=== PATIENT | male | born 1955 | race Caucasian/White ===

== ENCOUNTER 2016-11-20 17:11 | Emergency (ER) | payer OTHER ==
[~2016-11-20] VITALS: Ht 175.3 cm; Wt 108.9 kg
[~2016-11-20 17:11] MED LIST: ASPIRIN 81MG TA81 MG PO; CIPRO 500MG TA500 MG PO; FLAGYL500 M1 PO; FLOMAX 0.4MG C0.4 MG PO; NORCO 325 MG-51 TAB PO; OMEPRAZOLE20 MG PO; OMEPRAZOLE40 MG PO; VERAPAMIL HCL40 MG PO; ZOFRAN 8MG TABLE8 MG PO; ZOFRAN ODT4 MG PO
--- NOTE | 2016-11-20 18:09 | Urgent Treatment Center Report ---
History of Present Issue Date/Time Seen by Provider 11/20/16 5239 Visit Reason Pt arrived:Walked Presenting Problem:PT C/O MIGRAINE PEREZ SINCE LAST NIGHT. PT ADVISES THAT HIS HR GOT UP LAST NIGHT AND THAT IS WHEN THE MIGRAINE BEGAN. PT STATES THAT HE HAS A PACEMAKER THAT SHOCKS HIS HEART BACK INTO RHYTHM WHEN IT GETS TOO FAST. PT ADVISES THAT IT SHOCKED HIM ON HIS WAY HOME FROM WORK THIS MORNING AND THE MIGRAINE WAS WORSE. HE DID VOMIT THIS MORNING AND FELT IF HE WAS GOING TO PASS OUT. PT DENIES ANY OTHER SYMPTOMS THAN THE MIGRAINE AT THIS TIME Location if Accident: Onset of symptoms date/time:/ or onset unknown for:MEDICAL HX UNKNOWN Have you (or family members/close friends) recently traveled outside the [place]? N If Yes, where/when: Have you had exposure to infectious disease within the past month? TB? Other? Specify: Patient state that he has a pacemaker states that yesterday he began to have a migraine after his heart rate went up States that his pacemaker fired this morning and it made him vomit and ever since his head has been hurting worse. States that he gets these headaches sometimes and when he vomits it makes it worse. Denies any chest pain or palpatations at this time. States that he just has the migraine and that may have made his heartrate increase to start with ALLERGIES Coded Allergies: No Known Allergies (07/25/16) Home Medications Active Scripts Omeprazole (Omeprazole 40MG) 40 MG PO DAILY 14 Days Prov: 07/25/16 Ondansetron Hcl (Zofran 8MG Tab) 8 MG PO Q6HP PRN nausea 5 Days Prov: 07/25/16 Reported Medications ASPIRIN (Aspirin) 81 MG PO DAILY Omeprazole (Omeprazole 20MG) 20 MG PO DAILY #30 History Medical History General CAD? No Angina: Yes MA: No Hypertension? Yes Hyperlipidemia? Yes CHF? No DVT? No PE? No COPD? No Asthma? No Anemia? No GERD? Yes Gastric ulcers? Yes GI Bleed? No Hernia? Yes Thyroid Problems? No Hypothyroidism? No CVA? No Seizures? No Diabetes? No Renal Insuffiency? No UTI? No Stones? Yes BPH? No GB Disease: No Nephritic Syndrome? No Asplenia? No Hepatitis? No Sickle Cell Disease? No Arthritis? Yes Migraines? Yes Cataracts? No Glaucoma? No MRSA? No HIV? No TB? No Anxiety? Yes Depression? Yes Cancer? Yes Site: SKIN More? No Immunization HX DT/Tetanus 1-4 Years Ago Surgical Hx Previous Surgery?Y PACEMAKER FINGER UMBILICAL HERNIA Social History Smoking Hx Smoker: Never Smoker Tobacco: No Alcohol Alcohol: No Review of Systems All Other Systems Reviewed and Negative Psychiatric/Neurological headache Comment Patient states that he has migraines at times and this migraine has caused him to have some nausea and vomiting Physical Exam Vital Signs Vital Signs Date Time Temp Pulse Resp B/P Pulse O2 O2 Flow FiO2 Ox Delivery Rate 11/21 1815 16 11/20 1724 98.0 69 18 140/78 96 General Appearance Patient appears ill, sitting in exam chair Respiratory Status Yes: trachea midline, chest symmetrical, non tender chest. No: respiratory distress. 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 States that he was suppose to work tonight but still having headache and feeling nausous Medical Decision Making LABS/Meds/Orders Pt receiving controlled substance in ED? No Results/Orders Current Medication Orders Sig/Winnie Start time Last Medication Dose Route Stop Time Status Admin Promethazine HCl 1 JAMES ONCE ONE 11/20 1845 DC PO 11/20 1846 Ketorolac 60 MG ONCE ONE 11/20 1815 CAN Tromethamine IM 11/20 1816 Ketorolac 0 .STK-MED ONE 11/20 1805 DC Tromethamine .ROUTE Ketorolac 60 MG ONCE ONE 11/20 1800 DC 11/20 Tromethamine IM 11/20 1801 1816 Progress [facility] Progress Notes 1 Date 11/20/16 Time 1837 Comment Patient was given Tordol for pain. Advised patient that he needed to go to ER due to pacemaker firing and paitnet refused. States that he just wanted to be seen for the migraine and then go home. 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 Patient given take home phenergan and informed to take it as soon as he arrives home Departure Departure Time of Disposition 184 Disposition DC Home or Self Care(routine) Clinical Impression Primary Impression: Migraine Qualifiers: Migraine type: unspecified Status migrainosus presence: without status migrainosus Intractability: intractable Qualified Code: G43.919 - Migraine, unspecified, intractable, without status migrainosus Condition STABLE Referrals FAHAD CHAUDHARY APRN (Family) Patient Instructions DI for Migraine, Migraine -- Adult Additional Instructions Follow up with family doctor tomorrow and inform of pacemaker firign Follow up with Beamer Operator Take over the counter Motrin or Tylenol as needed for pain Return if needed Take Phenergan every 8 hours as directed Discharge Counseling Counseled pt/family regarding diagnosis at 1854
--- NOTE | 2016-11-20 18:09 | Urgent Treatment Center Report ---
History of Present Issue Date/Time Seen by Provider 11/20/16 9657 Visit Reason Pt arrived:Walked Presenting Problem:PT C/O MIGRAINE PEREZ SINCE LAST NIGHT. PT ADVISES THAT HIS HR GOT UP LAST NIGHT AND THAT IS WHEN THE MIGRAINE BEGAN. PT STATES THAT HE HAS A PACEMAKER THAT SHOCKS HIS HEART BACK INTO RHYTHM WHEN IT GETS TOO FAST. PT ADVISES THAT IT SHOCKED HIM ON HIS WAY HOME FROM WORK THIS MORNING AND THE MIGRAINE WAS WORSE. HE DID VOMIT THIS MORNING AND FELT IF HE WAS GOING TO PASS OUT. PT DENIES ANY OTHER SYMPTOMS THAN THE MIGRAINE AT THIS TIME Location if Accident: Onset of symptoms date/time:/ or onset unknown for:MEDICAL HX UNKNOWN Have you (or family members/close friends) recently traveled outside the [place]? N If Yes, where/when: Have you had exposure to infectious disease within the past month? TB? Other? Specify: Patient state that he has a pacemaker states that yesterday he began to have a migraine after his heart rate went up States that his pacemaker fired this morning and it made him vomit and ever since his head has been hurting worse. States that he gets these headaches sometimes and when he vomits it makes it worse. Denies any chest pain or palpatations at this time. States that he just has the migraine and that may have made his heartrate increase to start with ALLERGIES Coded Allergies: No Known Allergies (07/25/16) Home Medications Active Scripts Omeprazole (Omeprazole 40MG) 40 MG PO DAILY 14 Days Prov: 07/25/16 Ondansetron Hcl (Zofran 8MG Tab) 8 MG PO Q6HP PRN nausea 5 Days Prov: 07/25/16 Reported Medications ASPIRIN (Aspirin) 81 MG PO DAILY Omeprazole (Omeprazole 20MG) 20 MG PO DAILY #30 History Medical History General CAD? No Angina: Yes KS: No Hypertension? Yes Hyperlipidemia? Yes CHF? No DVT? No PE? No COPD? No Asthma? No Anemia? No GERD? Yes Gastric ulcers? Yes GI Bleed? No Hernia? Yes Thyroid Problems? No Hypothyroidism? No CVA? No Seizures? No Diabetes? No Renal Insuffiency? No UTI? No Stones? Yes BPH? No GB Disease: No Nephritic Syndrome? No Asplenia? No Hepatitis? No Sickle Cell Disease? No Arthritis? Yes Migraines? Yes Cataracts? No Glaucoma? No MRSA? No HIV? No TB? No Anxiety? Yes Depression? Yes Cancer? Yes Site: SKIN More? No Immunization HX DT/Tetanus 1-4 Years Ago Surgical Hx Previous Surgery?Y PACEMAKER FINGER UMBILICAL HERNIA Social History Smoking Hx Smoker: Never Smoker Tobacco: No Alcohol Alcohol: No Review of Systems All Other Systems Reviewed and Negative Psychiatric/Neurological headache Comment Patient states that he has migraines at times and this migraine has caused him to have some nausea and vomiting Physical Exam Vital Signs Vital Signs Date Time Temp Pulse Resp B/P Pulse O2 O2 Flow FiO2 Ox Delivery Rate 11/21 1815 16 11/20 1724 98.0 69 18 140/78 96 General Appearance Patient appears ill, sitting in exam chair Respiratory Status Yes: trachea midline, chest symmetrical, non tender chest. No: respiratory distress. 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 States that he was suppose to work tonight but still having headache and feeling nausous Medical Decision Making LABS/Meds/Orders Pt receiving controlled substance in ED? No Results/Orders Current Medication Orders Sig/Winnie Start time Last Medication Dose Route Stop Time Status Admin Promethazine HCl 1 JAMES ONCE ONE 11/20 1845 DC PO 11/20 1846 Ketorolac 60 MG ONCE ONE 11/20 1815 CAN Tromethamine IM 11/20 1816 Ketorolac 0 .STK-MED ONE 11/20 1805 DC Tromethamine .ROUTE Ketorolac 60 MG ONCE ONE 11/20 1800 DC 11/20 Tromethamine IM 11/20 1801 1816 Progress [facility] Progress Notes 1 Date 11/20/16 Time 1837 Comment Patient was given Tordol for pain. Advised patient that he needed to go to ER due to pacemaker firing and paitnet refused. States that he just wanted to be seen for the migraine and then go home. 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 Patient given take home phenergan and informed to take it as soon as he arrives home Departure Departure Time of Disposition 184 Disposition DC Home or Self Care(routine) Clinical Impression Primary Impression: Migraine Qualifiers: Migraine type: unspecified Status migrainosus presence: without status migrainosus Intractability: intractable Qualified Code: G43.919 - Migraine, unspecified, intractable, without status migrainosus Condition STABLE Referrals FAHAD CHAUDHARY APRN (Family) Patient Instructions DI for Migraine, Migraine -- Adult Additional Instructions Follow up with family doctor tomorrow and inform of pacemaker firign Follow up with Demurrage Agent Take over the counter Motrin or Tylenol as needed for pain Return if needed Take Phenergan every 8 hours as directed Discharge Counseling Counseled pt/family regarding diagnosis at 1859
--- OUTSIDE RECORDS SUMMARY | 2016-11-20 18:27 | External Medical Summary Rpt ---
Author Author , Organization [employer] Address Unknown Phone Unavailable Purpose Continuity of Care Document - through 2016
--- OUTSIDE RECORDS SUMMARY | 2016-11-20 18:27 | External Medical Summary Rpt ---
Demographics Preferred Language Macedonian Marital Status Unknown Gnosticist Affiliation Unknown Race Unknown Ethnic Group Unknown Author Author , Organization [employer] Address Unknown Phone Unavailable Purpose Continuity of Care Document - through 2016 Immunization No patient found.
--- OUTSIDE RECORDS SUMMARY | 2016-11-20 18:27 | External Medical Summary Rpt ---
Author Author SHARON Rousseau, SHARON [employer] Organization [employer] Address Unknown Phone Unavailable
--- OUTSIDE RECORDS SUMMARY | 2016-11-20 18:27 | External Medical Summary Rpt ---
Author Author [employer] Organization [employer] Address Unknown Phone Unavailable Purpose Continuity of Care Document - through 2016
--- OUTSIDE RECORDS SUMMARY | 2016-11-20 18:27 | External Medical Summary Rpt ---
Demographics Preferred Language Kazakh Marital Status Unknown Anglican Affiliation Unknown Race Unknown Ethnic Group Unknown Author Author , Organization [employer] Address Unknown Phone Unavailable Purpose Continuity of Care Document - through 2016 Immunization No patient found.
--- OUTSIDE RECORDS SUMMARY | 2016-11-20 18:27 | External Medical Summary Rpt ---
Demographics Preferred Language Lao Marital Status Unknown Baptist Affiliation Unknown Race Unknown Ethnic Group Unknown Author Author , Organization [employer] Address Unknown Phone Unavailable Purpose Continuity of Care Document - through 2016 Immunization No patient found.
--- OUTSIDE RECORDS SUMMARY | 2016-11-20 18:27 | External Medical Summary Rpt ---
Demographics Preferred Language Belarusian Marital Status Unknown Cheondoism Affiliation Unknown Race Unknown Ethnic Group Unknown Author Author , Organization [employer] Address Unknown Phone Unavailable Purpose Continuity of Care Document - through 2016 Immunization No patient found.
[2016-11-20 18:59] VITALS: BP 140/78
== END 2016-11-20 19:01 | disposition home or self-care (01) ==
LOC: UTC 17:11
DX: G43.919 Migraine, unspecified, intractable, without status migrainosus (principal); I10 Essential (primary) hypertension; F41.8 Other specified anxiety disorders

== ENCOUNTER 2017-05-05 10:10 | Emergency (ER) | payer OTHER ==
[~2017-05-05] VITALS: Ht 175.3 cm; Wt 108.9 kg
--- OUTSIDE RECORDS SUMMARY | 2017-05-05 10:16 | External Medical Summary Rpt | CCD ---
Author Author SHARON Address Unknown Phone [email or web address] Purpose Continuity of Care Document - through 2016
--- OUTSIDE RECORDS SUMMARY | 2017-05-05 10:16 | External Medical Summary Rpt | CCD ---
Author Author SHARON Address Unknown Phone [email or web address] Purpose Continuity of Care Document - through 2016
--- OUTSIDE RECORDS SUMMARY | 2017-05-05 10:17 | External Medical Summary Rpt | CCD ---
Demographics Preferred Language Cook Islander Marital Status Unknown Uatsdin Affiliation Unknown Race Unknown Ethnic Group Unknown Author Author , SHARON HERRERA Address Unknown Phone Immunization No patient found.
--- OUTSIDE RECORDS SUMMARY | 2017-05-05 10:17 | External Medical Summary Rpt ---
Author Author SHARON Rousseau, [employer] Organization [employer] Address Unknown Phone Unavailable
--- OUTSIDE RECORDS SUMMARY | 2017-05-05 10:17 | External Medical Summary Rpt | CCD ---
Demographics Preferred Language Grenadian Marital Status Unknown Faith Affiliation Unknown Race Unknown Ethnic Group Unknown Author Author , SHARON HERRERA Address Unknown Phone Immunization No patient found.
[2017-05-05] MEDS ORDERED: PROMETHAZINE D118 ML PO (11:48)
[2017-05-05 11:50] VITALS: BP 128/81
--- NOTE | 2017-05-05 11:50 | Urgent Treatment Center Report ---
History of Present Issue Date/Time Seen by Provider 05/05/17 1120 Visit Reason Pt arrived:Walked Presenting Problem:PT COMPLAINS OF COUGH, BODY ACHES AND FEVER FOR 3 DAYS Location if Accident: Onset of symptoms date/time:/ or onset unknown for:MEDICAL HX UNKNOWN Have you (or family members/close friends) recently traveled outside the [place]? N If Yes, where/when: Have you had exposure to infectious disease within the past month? TB? Other? Specify: c/o rhinorrhea, nasal congestion, PND, cough x 2-3 days. Vomited Friday w/ cough. Nothing since. Cough nonproductive. No wheezing. Non smoker. aches and feeling feverish at times. Hasn't checked temp. No treatment prior to arrival. No known sick contacts. Source patient Exam Limitations no limitations ALLERGIES Coded Allergies: No Known Allergies (07/25/16) Home Medications Reported Medications ASPIRIN (Aspirin) 81 MG PO DAILY Omeprazole (Omeprazole 20MG) 20 MG PO DAILY #30 History Medical History General CAD? No Angina: Yes NE: No Hypertension? Yes Hyperlipidemia? Yes CHF? No DVT? No PE? No COPD? No Asthma? No Anemia? No GERD? Yes Gastric ulcers? Yes GI Bleed? No Hernia? Yes Thyroid Problems? No Hypothyroidism? No CVA? No Seizures? No Diabetes? No Renal Insuffiency? No UTI? No Stones? Yes BPH? No GB Disease: No Nephritic Syndrome? No Asplenia? No Hepatitis? No Sickle Cell Disease? No Arthritis? Yes Migraines? Yes Cataracts? No Glaucoma? No MRSA? No HIV? No TB? No Anxiety? Yes Depression? Yes Cancer? Yes Site: SKIN More? No Immunization HX DT/Tetanus 1-4 Years Ago Surgical Hx Previous Surgery?Y PACEMAKER FINGER UMBILICAL HERNIA Social History Smoking Hx Smoker: Never Smoker Tobacco: No Alcohol Alcohol: No Review of Systems All Other Systems Reviewed and Negative Constitutional see HPI, malaise Eyes denies drainage ENT see HPI, ear pain (left). denies: ear discharge, throat pain, throat swelling. Respiratory see HPI Cardiovascular denies chest pain Gastrointestinal see HPI, denies abdominal pain, denies diarrhea Skin denies rash Psychiatric/Neurological denies headache Physical Exam Vital Signs Vital Signs Date Time Temp Pulse Resp B/P Pulse O2 O2 Flow FiO2 Ox Delivery Rate 05/05 1150 98.3 71 18 128/81 95 05/05 1105 98.3 71 18 128/81 95 General Appearance normal appearance, no apparent distress Eye Exam - bilateral eye normal exam Ear, Nose, Throat normal ENT inspection Neck non-tender Respiratory Status No: respiratory distress, productive cough, non productive cough. Lung Sounds anterior: lungs clear. posterior: lungs clear. bilateral: lungs clear. Cardiovascular regular rate/rhythm, no peripheral edema, no murmur Neurologic alert, oriented x 3 Mental status normal mood/affect Skin normal color, warm/dry Lymphatic no adenopathy Medical Decision Making LABS/Meds/Orders Pt receiving controlled substance in ED? No Results/Orders Laboratory Tests 05/05/17 1105: Influenza Type A Ag NOT DETECTED, Influenza Type B Ag NOT DETECTED Orders Procedure Date/time Status [facility] FLU A,B 05/05 110 Complete Departure Departure Time of Disposition 1145 Disposition DC Home or Self Care(routine) Clinical Impression Primary Impression: Upper respiratory infection Qualifiers: URI type: unspecified viral URI Qualified Code: J06.9 - Acute upper respiratory infection, unspecified Condition STABLE Referrals FAHAD CHAUDHARY APRN (Family) IMMEDIATELY for new or worsening symptoms OR no noticeable improvement over the next 72 hours. 911 for difficulty breathing or swallowing. Patient Instructions DI for Viral Upper Respiratory Infection -- Adult Additional Instructions * No sign of bacterial infection. No flu. Likely a different viral infection. Virus can take 7-14 days to run their course * Monitor Temp. Tylenol every 4 hours as needed no more then 5 times in 24 hours and/or ibuprofen every 6 hours as needed (as long as your primary care doctor has told you that it is ok to take both) for fever/aches/pain. ER if fever no less than 101 despite tylenol and ibuprofen * Encourage fluids, water, gatorade, powerade, pedialyte if /toddler/child * warm salt water gargles * warm fluids * sore throat lozenges * sleep elevated * humidifier/vaporizer * Mucinex during the day for your cough and cough suppressant only at night. Be sure to drink lots of water. Insurance may not cover a prescription of mucinex. Might be cheaper to get 400mg tablets and take 2 tablets morning, midday and evening all with lots of water. * Promethazine DM cough syrup will cause drowsiness. Use it only at night. No driving, operating machinery or caring for small children after taking it. Discharge Counseling Counseled pt/family regarding diagnosis, medications/RX, home care, follow up needs Prescriptions Current Visit Scripts PROMETHAZINE/DEXTROMETHORPHAN (Promethazine-Dm Syrup) 5-10 ML PO QHSP PRN cough #90 ML will cause drowsiness so take only before going to sleep at 1157
== END 2017-05-05 11:52 | disposition home or self-care (01) ==
LOC: UTC 10:10
DX: J06.9 Acute upper respiratory infection, unspecified (principal); I10 Essential (primary) hypertension; K21.9 Gastro-esophageal reflux disease without esophagitis; Z85.828 Personal history of other malignant neoplasm of skin; Z79.82 Long term (current) use of aspirin; Z79.899 Other long term (current) drug therapy; Z95.0 Presence of cardiac pacemaker

== ENCOUNTER 2017-05-27 16:31 | Emergency (ER) | payer OTHER ==
[~2017-05-27] VITALS: Ht 175.3 cm; Wt 108.9 kg
[~2017-05-27 16:31] MED LIST changes: +PROMETHAZINE D118 ML PO
[2017-05-27] MEDS ORDERED: VERAPAMIL HCL180 M1 PO (16:47)
[2017-05-27] MEDS ORDERED: PROAIR HFA0.09 MG/AC IH (16:48)
--- NOTE | 2017-05-27 17:13 | RADIOLOGY REPORT PS360 ---
EXAM: LUMBAR SPINE 5 VIEWS HISTORY: PAIN IN LOWER BACK X 3 DAYS ORDERING PHYSICIAN: KEYLA GALVAN APRN PATIENT AGE: 62 years COMPARISON: None FINDINGS: There is normal alignment. No fracture or dislocation is evident. There is partial embolization of S1. Mild degenerative disc disease is present at L5-S1. Facet arthritic changes with facet sclerosis noted at L5-S1 and S1-S2. There is mild sclerosis of the SI joints. IMPRESSION: 1. Lumbar spondylosis with mild degenerative disc disease at L5-S1 and facet arthritic changes at L5-S1 and S1-S2 2. Mild SI arthritic changes
--- NOTE | 2017-05-27 17:25 | Urgent Treatment Center Report ---
History of Present Issue Date/Time Seen by Provider 05/27/17 1700 Visit Reason Pt arrived:Walked Presenting Problem:PT COMPLAINS OF LOWER BACK PAIN TO GOES DOWN HIS RT LEG X 3 DAYS. HAS TRIED TYLENOL AND SOAKING IN BATHS. STATES NOT SURE IF HE PULLED A MUSCLE Location if Accident: Onset of symptoms date/time:/ or onset unknown for:MEDICAL HX UNKNOWN Have you (or family members/close friends) recently traveled outside the [place]? N If Yes, where/when: Have you had exposure to infectious disease within the past month? TB? Other? Specify: c/o low back pain x 3 days. No known cause. Radiates down right leg at times. Little improvement w/ tylenol and warm baths. denies N/T. Urinary urgency but without dysuria, frequency or incontinence. Source patient Exam Limitations no limitations ALLERGIES Coded Allergies: No Known Allergies (07/25/16) Home Medications Reported Medications ASPIRIN (Aspirin) 81 MG PO DAILY Omeprazole (Omeprazole 20MG) 20 MG PO DAILY #30 Verapamil Hcl (Verapamil ER) 180 MG PO DAILY #30 Albuterol Sulfate (Proair Hfa) 1 PUFF IH Q6HP PRN RESP #8 History Medical History General CAD? No Angina: Yes KS: No Hypertension? Yes Hyperlipidemia? Yes CHF? No DVT? No PE? No COPD? No Asthma? No Anemia? No GERD? Yes Gastric ulcers? Yes GI Bleed? No Hernia? Yes Thyroid Problems? No Hypothyroidism? No CVA? No Seizures? No Diabetes? No Renal Insuffiency? No UTI? No Stones? Yes BPH? No GB Disease: No Nephritic Syndrome? No Asplenia? No Hepatitis? No Sickle Cell Disease? No Arthritis? Yes Migraines? Yes Cataracts? No Glaucoma? No MRSA? No HIV? No TB? No Anxiety? Yes Depression? Yes Cancer? Yes Site: SKIN More? No Immunization HX DT/Tetanus 1-4 Years Ago Surgical Hx Previous Surgery?Y PACEMAKER FINGER UMBILICAL HERNIA Social History Smoking Hx Smoker: Never Smoker Tobacco: No Alcohol Alcohol: No Review of Systems All Other Systems Reviewed and Negative (limited, pt going to ER) Constitutional denies chills, denies fever, denies malaise Respiratory denies shortness of breath Cardiovascular denies chest pain, denies palpitations Gastrointestinal denies abdominal pain, denies diarrhea, denies nausea, denies vomiting Genitourinary see HPI. denies: discharge. Musculoskeletal see HPI, denies joint pain, denies joint swelling, denies muscle stiffness Skin denies lesions, denies lumps, denies rash Psychiatric/Neurological denies headache Physical Exam Vital Signs Vital Signs Date Time Temp Pulse Resp B/P Pulse O2 O2 Flow FiO2 Ox Delivery Rate 05/27 164 98.0 67 20 153/93 98 General Appearance normal appearance, no apparent distress Respiratory Status No: respiratory distress. Cardiovascular no peripheral edema Neurologic alert Comments discussed [facility] guidelines prior to exam. pt chose ER so no further exam Medical Decision Making LABS/Meds/Orders Pt receiving controlled substance in ED? No Results/Orders Orders Procedure Date/time Status LUMBAR SPINE 5 VIEWS 05/27 1644 Active Progress [facility] Progress Notes Date 05/27/17 Time 1710 Comment Discussed [facility] guidelines with patient. Aware guidelines say any patient over 50 with back pain is to be seen in ER. Discussed why. Pt doesn't want to take the risk of being seen in [place] "especially since I don't know the cause of this pain ". Report called to October, room 9 available. Departure Departure Time of Disposition 171 Disposition Still a Patient Clinical Impression Primary Impression: Back pain Qualifiers: Back pain location: low back pain Chronicity: acute Back pain laterality: right Sciatica presence: with sciatica Sciatica laterality: sciatica of right side Qualified Code: M54.41 - Lumbago with sciatica, right side Condition STABLE at 1724
--- NOTE | 2017-05-27 17:25 | Urgent Treatment Center Report ---
History of Present Issue Date/Time Seen by Provider 05/27/17 1700 Visit Reason Pt arrived:Walked Presenting Problem:PT COMPLAINS OF LOWER BACK PAIN TO GOES DOWN HIS RT LEG X 3 DAYS. HAS TRIED TYLENOL AND SOAKING IN BATHS. STATES NOT SURE IF HE PULLED A MUSCLE Location if Accident: Onset of symptoms date/time:/ or onset unknown for:MEDICAL HX UNKNOWN Have you (or family members/close friends) recently traveled outside the [place]? N If Yes, where/when: Have you had exposure to infectious disease within the past month? TB? Other? Specify: c/o low back pain x 3 days. No known cause. Radiates down right leg at times. Little improvement w/ tylenol and warm baths. denies N/T. Urinary urgency but without dysuria, frequency or incontinence. Source patient Exam Limitations no limitations ALLERGIES Coded Allergies: No Known Allergies (07/25/16) Home Medications Reported Medications ASPIRIN (Aspirin) 81 MG PO DAILY Omeprazole (Omeprazole 20MG) 20 MG PO DAILY #30 Verapamil Hcl (Verapamil ER) 180 MG PO DAILY #30 Albuterol Sulfate (Proair Hfa) 1 PUFF IH Q6HP PRN RESP #8 History Medical History General CAD? No Angina: Yes [place]: No Hypertension? Yes Hyperlipidemia? Yes CHF? No DVT? No PE? No COPD? No Asthma? No Anemia? No GERD? Yes Gastric ulcers? Yes GI Bleed? No Hernia? Yes Thyroid Problems? No Hypothyroidism? No CVA? No Seizures? No Diabetes? No Renal Insuffiency? No UTI? No Stones? Yes BPH? No GB Disease: No Nephritic Syndrome? No Asplenia? No Hepatitis? No Sickle Cell Disease? No Arthritis? Yes Migraines? Yes Cataracts? No Glaucoma? No MRSA? No HIV? No TB? No Anxiety? Yes Depression? Yes Cancer? Yes Site: SKIN More? No Immunization HX DT/Tetanus 1-4 Years Ago Surgical Hx Previous Surgery?Y PACEMAKER FINGER UMBILICAL HERNIA Social History Smoking Hx Smoker: Never Smoker Tobacco: No Alcohol Alcohol: No Review of Systems All Other Systems Reviewed and Negative (limited, pt going to ER) Constitutional denies chills, denies fever, denies malaise Respiratory denies shortness of breath Cardiovascular denies chest pain, denies palpitations Gastrointestinal denies abdominal pain, denies diarrhea, denies nausea, denies vomiting Genitourinary see HPI. denies: discharge. Musculoskeletal see HPI, denies joint pain, denies joint swelling, denies muscle stiffness Skin denies lesions, denies lumps, denies rash Psychiatric/Neurological denies headache Physical Exam Vital Signs Vital Signs Date Time Temp Pulse Resp B/P Pulse O2 O2 Flow FiO2 Ox Delivery Rate 05/27 164 98.0 67 20 153/93 98 General Appearance normal appearance, no apparent distress Respiratory Status No: respiratory distress. Cardiovascular no peripheral edema Neurologic alert Comments discussed [facility] guidelines prior to exam. pt chose ER so no further exam Medical Decision Making LABS/Meds/Orders Pt receiving controlled substance in ED? No Results/Orders Orders Procedure Date/time Status LUMBAR SPINE 5 VIEWS 05/27 1644 Active Progress [facility] Progress Notes Date 05/27/17 Time 1710 Comment Discussed [facility] guidelines with patient. Aware guidelines say any patient over 50 with back pain is to be seen in ER. Discussed why. Pt doesn't want to take the risk of being seen in [place] "especially since I don't know the cause of this pain ". Report called to October, room 9 available. Departure Departure Time of Disposition 171 Disposition Still a Patient Clinical Impression Primary Impression: Back pain Qualifiers: Back pain location: low back pain Chronicity: acute Back pain laterality: right Sciatica presence: with sciatica Sciatica laterality: sciatica of right side Qualified Code: M54.41 - Lumbago with sciatica, right side Condition STABLE at 1724
--- NOTE | 2017-05-27 17:34 | Emergency Room Report ---
History of Present Illness Time Seen by [id number] Presenting Problem in Triage Pt arrived:Walked Presenting Problem:PT COMPLAINS OF LOWER BACK PAIN TO GOES DOWN HIS RT LEG X 3 DAYS. HAS TRIED TYLENOL AND SOAKING IN BATHS. STATES NOT SURE IF HE PULLED A MUSCLE PT SENT FROM [facility] FOR FURTHER EVAL Onset of symptoms date/time:/ or onset unknown for:MEDICAL HX UNKNOWN Treatment Prior to Arrival: [employer] [facility] Provided by: Sepsis Risk Assessment: Temp: 98 B/P: 153/93 MAP: 113 Pulse: 67 Resp: 20 Recent fever? N Clinical Suspician of Infection? N Mental Status: 1 - Regular (Normal Baseline) Sepsis Risk:Low Sepsis Risk Have you (or family members/close friends) recently traveled outside the [place]? N If Yes, where/when: Have you had exposure to infectious disease within the past month? N TB? Other? Specify: Comment Patient complains of low back pain for about 3 days. He does not recall any injury. The pain radiates down to his RIGHT knee. Pain increases with movement. He has urinary frequency for 2 days. He has some mild generalized abdominal discomfort. No fever. No hematuria. No loss of bowel or bladder control. He has a prior history of a fall with a back injury at the age of 30, no back problems since then. He did not sustain any fractures at that time. He was seen at the urgent treatment center and sent here for further evaluation. ALLERGIES Coded Allergies: No Known Allergies (07/25/16) Home Medications Reported Medications ASPIRIN (Aspirin) 81 MG PO DAILY Omeprazole (Omeprazole 20MG) 20 MG PO DAILY #30 Verapamil Hcl (Verapamil ER) 180 MG PO DAILY #30 Albuterol Sulfate (Proair Hfa) 1 PUFF IH Q6HP PRN RESP #8 History Medical History General CAD? No Angina: Yes [place]: No Hypertension? Yes Hyperlipidemia? Yes CHF? No DVT? No PE? No COPD? No Asthma? No Anemia? No GERD? Yes Gastric ulcers? Yes GI Bleed? No Hernia? Yes Thyroid Problems? No Hypothyroidism? No CVA? No Seizures? No Diabetes? No Renal Insuffiency? No End Stage Renal Disease? No UTI? No Stones? Yes BPH? No GB Disease: No Nephritic Syndrome? No Asplenia? No Hepatitis? No Sickle Cell Disease? No Arthritis? Yes Migraines? Yes Cataracts? No Glaucoma? No MRSA? No HIV? No TB? No Anxiety? Yes Depression? Yes Cancer? Yes Site: SKIN More? No Immunization Hx DT/Tetanus 1-4 Years Ago Surgical Hx Previous Surgery?Y PACEMAKER FINGER UMBILICAL HERNIA Social History Smoking Hx Smoker: Never Smoker Tobacco: No Alcohol Alcohol: No Review of Systems All Other Systems Reviewed and Negative Constitutional denies fever Cardiovascular denies chest pain Gastrointestinal abdominal pain, denies nausea, denies vomiting Genitourinary frequency. denies: dysuria, hematuria. Musculoskeletal back pain Psychiatric/Neurological denies numbness, denies weakness Physical Exam Vital Signs Vital Signs Date Time Temp Pulse Resp B/P Pulse O2 O2 Flow FiO2 Ox Delivery Rate 05/27 1845 98.0 73 20 141/103 98 05/27 1720 98.0 67 20 153/93 98 05/27 1644 98.0 67 20 153/93 98 General Appearance no apparent distress Eye Exam - bilateral eye normal exam, bilateral eye PERRL, bilateral eye EOMI Ear, Nose, Throat hearing grossly normal, normal ENT inspection Neck normal inspection, non-tender, supple, full range of motion Respiratory Status Yes: trachea midline, chest symmetrical. No: respiratory distress. Lung Sounds bilateral: normal breath sounds, lungs clear. Cardiovascular normal exam, regular rate/rhythm, no peripheral edema, no gallop, no JVD, no murmur, no rub, normal peripheral pulses Peripheral Pulses Pulses normal Yes Gastrointestinal normal bowel sounds, soft, no organomegaly, no pulsatile mass, no guarding, no rebound, mild generalized tenderness Back normal inspection, diffuse lumbar tenderness Extremities non-tender, normal range of motion, normal inspection Neurologic alert, rn international II-XII nml as tested, normal exam, oriented x 3 Reflexes Comment Patella 2+ bilaterally, Achilles 1+ bilaterally Mental status normal mood/affect Skin intact, normal color, warm/dry Medical Decision Making LABS/Meds/Orders Pt receiving controlled substance in ED? Yes Dom was queried for this patient? Yes Comment [id number] rxs. Results/Orders Laboratory Tests 05/27/17 1755: Sodium 135 L, Potassium 4.0, Chloride 101, Carbon Dioxide 28, BUN 15, Creatinine 1.1, Estimated Creat Clear 107, Estimated GFR (MDRD) 68, Glucose 110 H, Calcium 9.3, Total Bilirubin 0.4, AST 23, ALT 42, Alkaline Phosphatase 73, Total Protein 7.8, Albumin 4.4, Globulin 3.4 H, Albumin/Globulin Ratio 1.3, Lipase 194, WBC 8.3, RBC 5.60, Hgb 16.4, Hct 49.3, MCV 87.9, RDW 13.5, Plt Count 345, MPV 7.4, Gran % 72.2, Gran # 6.0, Lymphocytes % 19.2, Monocytes % 6.7, Eosinophils % 1.0, Basophils % 0.9, Lymphocytes # 1.6, Monocytes # 0.6, Eosinophils # 0.1, Basophils # 0.1, PUBS MCHC 33.4, MCH 29.4 05/27/17 1720: Urine Color YELLOW, Urine Appearance CLEAR, Urine pH 6.0, Ur Specific [place] <= 1.005, Urine Protein NEGATIVE, Urine Ketones NEGATIVE, Urine Blood NEGATIVE, Urine Nitrate NEGATIVE, Urine Bilirubin NEGATIVE, Urine Urobilinogen 0.2, Ur Leukocyte Esterase NEGATIVE, Urine RBC NONE, Urine WBC NONE, Ur Squamous Epith Cells NONE, Urine Bacteria TRACE, Urine Glucose NEGATIVE Current Medication Orders Sig/Winnie Start time Last Medication Dose Route Stop Time Status Admin Prednisone 40 MG ONCE ONE 05/27 1845 DC PO 05/27 1846 Sodium Chloride 10 ML PRN PRN 05/27 1800 DCD IV 05/28 1746 Orders Procedure Date/time Status DIET-NOTHING BY MOUTH 05/[address] ABD & PELVIS W/O CONTRAST 05/[address] ABD/PELVIS REQ 05/27 174 Complete IV SALINE LOCK 05/27 1747 Active LIPASE 05/27 174 Complete CBC WITH AUTO DIFF 05/27 1747 Complete CHEM 12 PROFILE 05/27 1747 Complete URINALYSIS/COMPLETE 05/27 172 Complete XRAY/CT/US XRAY/CT/US XRAY L-spine Comment X-ray interpreted by radiologist: Lumbar spondylosis with mild degenerative disc disease at L5-S1 and facet arthritic changes at L5-S1 and S1-S2. Mild sacroiliac arthritic changes. CT abdomen, pelvis Comment CT scan interpreted by [facility] radiologist. Faxed report received and reviewed: Nonobstructing punctate stone in the RIGHT kidney. Mild LEFT pyelocaliectasis, unchanged. Diverticula without diverticulitis. Departure Departure Disposition DC Home or Self Care(routine) Clinical Impression Primary Impression: Low back pain with right-sided sciatica Qualifiers: Chronicity: acute Back pain laterality: bilateral Qualified Code: M54.41 - Lumbago with sciatica, right side Condition STABLE Referrals FAHAD CHAUDHARY APRN (Family) Patient Instructions DI for Back Pain With Sciatica Additional Instructions Off work 05/27/17 and 05/28/17. Additional instructions for BACK PAIN: See your physician as soon as possible for further evaluation. Return immediately if back pain becomes intolerable, or if fever, numbness or weakness of your legs, loss of control of your bowels or bladder. Prescriptions Current Visit Scripts Prednisone (Prednisone 20MG Tab) 20 MG PO BID #10 TAB TRAMADOL HCL (Tramadol) 50 MG PO Q6HP PRN pain #10 TAB ED Critical Care Critical Care No at 2013
--- NOTE | 2017-05-27 17:34 | Emergency Room Report ---
History of Present Illness Time Seen by [id number] Presenting Problem in Triage Pt arrived:Walked Presenting Problem:PT COMPLAINS OF LOWER BACK PAIN TO GOES DOWN HIS RT LEG X 3 DAYS. HAS TRIED TYLENOL AND SOAKING IN BATHS. STATES NOT SURE IF HE PULLED A MUSCLE PT SENT FROM [facility] FOR FURTHER EVAL Onset of symptoms date/time:/ or onset unknown for:MEDICAL HX UNKNOWN Treatment Prior to Arrival: [employer] Provided by: Sepsis Risk Assessment: Temp: 98 B/P: 153/93 MAP: 113 Pulse: 67 Resp: 20 Recent fever? N Clinical Suspician of Infection? N Mental Status: 1 - Regular (Normal Baseline) Sepsis Risk:Low Sepsis Risk Have you (or family members/close friends) recently traveled outside the [place]? N If Yes, where/when: Have you had exposure to infectious disease within the past month? N TB? Other? Specify: Comment Patient complains of low back pain for about 3 days. He does not recall any injury. The pain radiates down to his RIGHT knee. Pain increases with movement. He has urinary frequency for 2 days. He has some mild generalized abdominal discomfort. No fever. No hematuria. No loss of bowel or bladder control. He has a prior history of a fall with a back injury at the age of 30, no back problems since then. He did not sustain any fractures at that time. He was seen at the urgent treatment center and sent here for further evaluation. ALLERGIES Coded Allergies: No Known Allergies (07/25/16) Home Medications Reported Medications ASPIRIN (Aspirin) 81 MG PO DAILY Omeprazole (Omeprazole 20MG) 20 MG PO DAILY #30 Verapamil Hcl (Verapamil ER) 180 MG PO DAILY #30 Albuterol Sulfate (Proair Hfa) 1 PUFF IH Q6HP PRN RESP #8 History Medical History General CAD? No Angina: Yes [place]: No Hypertension? Yes Hyperlipidemia? Yes CHF? No DVT? No PE? No COPD? No Asthma? No Anemia? No GERD? Yes Gastric ulcers? Yes GI Bleed? No Hernia? Yes Thyroid Problems? No Hypothyroidism? No CVA? No Seizures? No Diabetes? No Renal Insuffiency? No End Stage Renal Disease? No UTI? No Stones? Yes BPH? No GB Disease: No Nephritic Syndrome? No Asplenia? No Hepatitis? No Sickle Cell Disease? No Arthritis? Yes Migraines? Yes Cataracts? No Glaucoma? No MRSA? No HIV? No TB? No Anxiety? Yes Depression? Yes Cancer? Yes Site: SKIN More? No Immunization Hx DT/Tetanus 1-4 Years Ago Surgical Hx Previous Surgery?Y PACEMAKER FINGER UMBILICAL HERNIA Social History Smoking Hx Smoker: Never Smoker Tobacco: No Alcohol Alcohol: No Review of Systems All Other Systems Reviewed and Negative Constitutional denies fever Cardiovascular denies chest pain Gastrointestinal abdominal pain, denies nausea, denies vomiting Genitourinary frequency. denies: dysuria, hematuria. Musculoskeletal back pain Psychiatric/Neurological denies numbness, denies weakness Physical Exam Vital Signs Vital Signs Date Time Temp Pulse Resp B/P Pulse O2 O2 Flow FiO2 Ox Delivery Rate 05/27 1845 98.0 73 20 141/103 98 05/27 1720 98.0 67 20 153/93 98 05/27 1644 98.0 67 20 153/93 98 General Appearance no apparent distress Eye Exam - bilateral eye normal exam, bilateral eye PERRL, bilateral eye EOMI Ear, Nose, Throat hearing grossly normal, normal ENT inspection Neck normal inspection, non-tender, supple, full range of motion Respiratory Status Yes: trachea midline, chest symmetrical. No: respiratory distress. Lung Sounds bilateral: normal breath sounds, lungs clear. Cardiovascular normal exam, regular rate/rhythm, no peripheral edema, no gallop, no JVD, no murmur, no rub, normal peripheral pulses Peripheral Pulses Pulses normal Yes Gastrointestinal normal bowel sounds, soft, no organomegaly, no pulsatile mass, no guarding, no rebound, mild generalized tenderness Back normal inspection, diffuse lumbar tenderness Extremities non-tender, normal range of motion, normal inspection Neurologic alert, mgmt consultant II-XII nml as tested, normal exam, oriented x 3 Reflexes Comment Patella 2+ bilaterally, Achilles 1+ bilaterally Mental status normal mood/affect Skin intact, normal color, warm/dry Medical Decision Making LABS/Meds/Orders Pt receiving controlled substance in ED? Yes Dom was queried for this patient? Yes Comment [id number] 0 rxs. Results/Orders Laboratory Tests 05/27/17 1755: Sodium 135 L, Potassium 4.0, Chloride 101, Carbon Dioxide 28, BUN 15, Creatinine 1.1, Estimated Creat Clear 107, Estimated GFR (MDRD) 68, Glucose 110 H, Calcium 9.3, Total Bilirubin 0.4, AST 23, ALT 42, Alkaline Phosphatase 73, Total Protein 7.8, Albumin 4.4, Globulin 3.4 H, Albumin/Globulin Ratio 1.3, Lipase 194, WBC 8.3, RBC 5.60, Hgb 16.4, Hct 49.3, MCV 87.9, RDW 13.5, Plt Count 345, MPV 7.4, Gran % 72.2, Gran # 6.0, Lymphocytes % 19.2, Monocytes % 6.7, Eosinophils % 1.0, Basophils % 0.9, Lymphocytes # 1.6, Monocytes # 0.6, Eosinophils # 0.1, Basophils # 0.1, PUBS MCHC 33.4, MCH 29.4 05/27/17 1720: Urine Color YELLOW, Urine Appearance CLEAR, Urine pH 6.0, Ur Specific [place] <= 1.005, Urine Protein NEGATIVE, Urine Ketones NEGATIVE, Urine Blood NEGATIVE, Urine Nitrate NEGATIVE, Urine Bilirubin NEGATIVE, Urine Urobilinogen 0.2, Ur Leukocyte Esterase NEGATIVE, Urine RBC NONE, Urine WBC NONE, Ur Squamous Epith Cells NONE, Urine Bacteria TRACE, Urine Glucose NEGATIVE Current Medication Orders Sig/Winnie Start time Last Medication Dose Route Stop Time Status Admin Prednisone 40 MG ONCE ONE 05/27 1845 DC PO 05/27 1846 Sodium Chloride 10 ML PRN PRN 05/27 1800 DCD IV 05/28 1746 Orders Procedure Date/time Status DIET-NOTHING BY MOUTH 05/[address] ABD & PELVIS W/O CONTRAST 05/[address] ABD/PELVIS REQ 05/27 174 Complete IV SALINE LOCK 05/27 1747 Active LIPASE 05/27 174 Complete CBC WITH AUTO DIFF 05/27 1747 Complete CHEM 12 PROFILE 05/27 1747 Complete URINALYSIS/COMPLETE 05/27 172 Complete XRAY/CT/US XRAY/CT/US XRAY L-spine Comment X-ray interpreted by radiologist: Lumbar spondylosis with mild degenerative disc disease at L5-S1 and facet arthritic changes at L5-S1 and S1-S2. Mild sacroiliac arthritic changes. CT abdomen, pelvis Comment CT scan interpreted by [facility] radiologist. Faxed report received and reviewed: Nonobstructing punctate stone in the RIGHT kidney. Mild LEFT pyelocaliectasis, unchanged. Diverticula without diverticulitis. Departure Departure Disposition DC Home or Self Care(routine) Clinical Impression Primary Impression: Low back pain with right-sided sciatica Qualifiers: Chronicity: acute Back pain laterality: bilateral Qualified Code: M54.41 - Lumbago with sciatica, right side Condition STABLE Referrals FAHAD CHAUDHARY APRN (Family) Patient Instructions DI for Back Pain With Sciatica Additional Instructions Off work 05/27/17 and 05/28/17. Additional instructions for BACK PAIN: See your physician as soon as possible for further evaluation. Return immediately if back pain becomes intolerable, or if fever, numbness or weakness of your legs, loss of control of your bowels or bladder. Prescriptions Current Visit Scripts Prednisone (Prednisone 20MG Tab) 20 MG PO BID #10 TAB TRAMADOL HCL (Tramadol) 50 MG PO Q6HP PRN pain #10 TAB ED Critical Care Critical Care No at 2013
[2017-05-27 17:51] LABS: URINE BILIRUBIN - DIPSTICK NEGATIVE (NEG); URINE BLOOD NEGATIVE (NEG)
[2017-05-27 18:05] LABS: HEMOGLOBIN 16.4 g/dL (14.1-18.0); LYMPH # 1.6 K/mm3 (0.7-4.5); LYMPH % 19.2 % (10-50)
[2017-05-27] MEDS ORDERED: PREDNISONE20 MG PO (18:33)
[2017-05-27] MEDS ORDERED: TRAMADOL50 M1 PO (18:34)
[2017-05-27 18:45] VITALS: BP 141/103
--- NOTE | 2017-05-28 06:02 | RADIOLOGY REPORT PS360 ---
CT ABD PELVIS W/O CONTRAST CLINICAL INDICATION: LOW BACK PAIN, ABD PAIN, URINARY FREQUENCY ORDERING PHYSICIAN: Gm Betts MD PATIENT AGE: 62 years COMPARISON: 07/25/2016 TECHNIQUE: Axial images obtained with sagittal and coronal reformats. PROCEDURE: Oral Contrast: None IV Contrast: None . FINDINGS: Lung bases are clear. There is diffuse fatty liver. No radiopaque gallstones. The spleen, adrenal glands, and pancreas are unremarkable. Nonobstructing 2 mm calculus is present in the lower pole the right kidney. Mild prominence of the left renal pelvis versus parapelvic renal cyst unchanged. No obstructing ureteral calculi. Unremarkable appendix. There is diffuse diverticulosis of the descending and sigmoid colon. No evidence of diverticulitis.. No pelvic mass, focal inflammatory change or abnormal fluid collection. No intestinal obstruction or free air. No acute bony anomalies. Fat containing fat in the hernia. IMPRESSION: 1. No change from 07/25/2016 with no acute intra-abdominal pelvic findings. 2. Nonobstructing right renal calculus. Fullness in the left renal collecting system versus parapelvic renal cyst unchanged. 3. Hepatic steatosis. 4. Diverticulosis without diverticulitis
== END 2017-05-27 18:46 | disposition home or self-care (01) ==
LOC: UTC 16:31 → ER 16:39 → UTC 16:39 → ER 16:39
PROVIDERS: Emergency Medicine
DX: M54.41 Lumbago with sciatica, right side (principal); F41.8 Other specified anxiety disorders; I10 Essential (primary) hypertension; E78.5 Hyperlipidemia, unspecified; I20.8 Other forms of angina pectoris

== ENCOUNTER 2017-06-04 06:06 | Emergency (ER) | payer OTHER ==
[~2017-06-04] VITALS: Ht 175.3 cm; Wt 108.9 kg
[~2017-06-04 06:06] MED LIST changes: +PREDNISONE20 MG PO; +PROAIR HFA0.09 MG/AC IH; +TRAMADOL50 M1 PO; +VERAPAMIL HCL180 M1 PO
[2017-06-04 06:32] LABS: HEMOGLOBIN 15.3 g/dL (14.1-18.0); LYMPH # 2.3 K/mm3 (0.7-4.5); LYMPH % 31.2 % (10-50)
--- NOTE | 2017-06-04 06:42 | Emergency Room Report ---
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 N Clinical Suspician of Infection? N Mental Status: 1 - Regular (Normal Baseline) Sepsis Risk:Low Sepsis Risk Have you (or family members/close friends) recently traveled outside the [place]? N If Yes, where/when: Have you had exposure to infectious disease within the past month? N TB? Other? 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 Cardiac Chest Pain Chest pain indicative of cardiac Yes Timing/Duration 1-3 hours, gone now Severity/Quality moderate, dull Location central Chest Pain Radiation no radiation Activities at Onset light activity Nitro Today/Relief 0.4 mg x 2, provided by ED, complete relief Aspirin Treatment Today 325 mg x 1, provided by ED Beta dennys treatment today no beta dennys taken Cardiac risk factors + cardiovascular disease, + family history Prior Workup/Intervention stress test Timing/Duration this morning Severity moderate ALLERGIES Coded Allergies: No Known Allergies (07/25/16) Home Medications Reported Medications ASPIRIN (Aspirin) 81 MG PO DAILY Omeprazole (Omeprazole 20MG) 20 MG PO DAILY #30 Verapamil Hcl (Verapamil ER) 180 MG PO DAILY #30 History Medical History General CAD? No Angina: Yes AR: No Hypertension? Yes Hyperlipidemia? Yes CHF? No DVT? No PE? No COPD? No Asthma? No Anemia? No GERD? Yes Gastric ulcers? Yes GI Bleed? No Hernia? Yes Thyroid Problems? No Hypothyroidism? No CVA? No Seizures? No Diabetes? No Renal Insuffiency? No End Stage Renal Disease? No UTI? No Stones? Yes BPH? No GB Disease: No Nephritic Syndrome? No Asplenia? No Hepatitis? No Sickle Cell Disease? No Arthritis? Yes Migraines? Yes Cataracts? No Glaucoma? No MRSA? No HIV? No TB? No Anxiety? Yes Depression? Yes Cancer? Yes Site: SKIN More? No Immunization Hx DT/Tetanus 1-4 Years Ago Surgical Hx Previous Surgery?Y PACEMAKER FINGER UMBILICAL HERNIA Social History Smoking Hx Smoker: Never Smoker Tobacco: No Alcohol Alcohol: No Drugs none Review of Systems All Other Systems Reviewed and Negative Constitutional denies fever Eyes denies drainage ENT denies: ear discharge, epistaxis, throat pain. Respiratory denies cough, denies shortness of breath, denies wheezing Cardiovascular see HPI, chest pain, palpitations, denies syncope Gastrointestinal denies abdominal pain, denies vomiting Genitourinary denies: dysuria, frequency, hesitancy, hematuria. Musculoskeletal denies back pain, denies joint pain, denies neck pain Skin denies rash Psychiatric/Neurological denies headache, denies seizure Physical Exam Vital Signs Vital Signs Date Time Temp Pulse Resp B/P Pulse O2 O2 Flow FiO2 Ox Delivery Rate 06/04 628 18 06/04 626 63 18 120/69 98 06/04 0623 18 06/04 620 63 18 143/86 98 06/04 0607 97.8 60 18 138/78 98 - WBC >12,000 or <4,000 or 10% bands? 2 or more SIRS Criteria Met? B/P:120/69 MAP:98 Creatinine >2.0? UA output<0.5ml/kg/hr for 2 hrs? Platelet count >100,000? Lactate >2.0mmol/1? INR >1.2 or PTT > than 60 sec? Evidence of Organ Dysfunction? Provider documented clinical suspician of infection? N Sepsis Criteria Count: 0 Sepsis Risk: Low Sepsis Risk General Appearance no apparent distress Eye Exam - bilateral eye PERRL, bilateral eye EOMI Ear, Nose, Throat normal ENT inspection Neck supple Respiratory Status No: respiratory distress. Lung Sounds bilateral: lungs clear. 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 No Results/Orders Laboratory Tests 06/04/17 0800: Troponin I < 0.02 06/04/17 0610: Sodium 138, Potassium 4.1, Chloride 103, Carbon Dioxide 30, BUN 16, Creatinine 1.1, Estimated Creat Clear 107, Estimated GFR (MDRD) 68, Glucose 125 H, Calcium 9.4, Total Bilirubin 0.3, AST 16, ALT 36, Alkaline Phosphatase 75, Creatine Kinase 161, CK-MB (CK-2) Rel Index 0.9, CK and CKMB Interp 1.5, Troponin I < 0.02, Total Protein 7.2, Albumin 4.1, Globulin 3.1, Albumin/Globulin Ratio 1.3, WBC 7.3, RBC 5.20, Hgb 15.3, Hct 46.7, MCV 89.9, RDW 13.6, Plt Count 263, MPV 7.3 L, Gran % 56.8, Gran # 4.1, Lymphocytes % 31.2, Monocytes % 8.3, Eosinophils % 2.5, Basophils % 1.1, Lymphocytes # 2.3, Monocytes # 0.6, Eosinophils # 0.2, Basophils # 0.1, PUBS MCHC 32.8, MCH 29.5 Current Medication Orders Sig/Winnie Start time Last Medication Dose Route Stop Time Status Admin Aspirin 234 MG ONCE ONE 06/04 630 CAN PO 06/04 631 Aspirin 243 MG ONCE ONE 06/04 630 DC 06/04 PO 06/04 631 0626 Nitroglycerin 0.4 MG [id number] PRN 06/04 630 AC 06/04 SL 0628 Sodium Chloride 10 ML PRN PRN 06/04 630 AC IV 06/05 06 Aspirin 0 .STK-MED ONE 06/04 622 DC .ROUTE Orders Procedure Date/time Status TROPONIN I 06/04 0759 Complete ELECTROCARDIOGRAM REQUEST 06/04 620 Active IV SALINE LOCK 06/04 620 Active CBC WITH AUTO DIFF 06/04 620 Complete CARDIAC ENZYMES 06/04 620 Complete CHEM 12 PROFILE 06/04 620 Complete CM/EKG 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 Rhythm Paced Rhythm XRAY/CT/US XRAY/CT/US XRAY chest XR interpretation by reviewed by me Xray Results normal/NAD SOCORRO Score for N-Stemi/Angina SOCORRO N-STEMI SCORE SOCORRO N-STEMI SCORE Response Value Age of patient Less than 65 yrs 0 Number of risk factors for CAD Presence of 3 or more 1 Prior coronary artery stenosis (seen in angiography) Less than 50% 0 ST-Segment deviation on ECG (>1 min) Absent 0 Prior aspirin intake No ASA in the last 7 days 0 Severe anginal chest pain No or 1 episode in 24h 0 Elevated cardiac markers(CK-MB or troponin) Absent 0 Total 1 Risk Stratification 0-2= Low Risk Patients Departure Departure Time of Disposition 0847 Disposition DC Home or Self Care(routine) Clinical Impression Primary Impression: Chest pain Qualifiers: Chest pain type: precordial pain Qualified Code: R07.2 - Precordial pain Secondary Impressions: Pacemaker Condition STABLE Referrals Gustavo Ernandez MD Patient Instructions DI for Chest Pain Additional Instructions see pcp and card for follow up Discharge Counseling Counseled pt/family regarding diagnosis, test results, follow up needs ED Critical Care Critical Care No at 0848
[2017-06-04 06:51] LABS: BUN 16 mg/dL (7-18); GFR (ESTIMATED) 68 ML/MIN (>60)
--- NOTE | 2017-06-04 06:58 | RADIOLOGY REPORT PS360 ---
CHEST(2 VIEWS-NOT PORTABLE) HISTORY: Chest pain C/O CHEST PAIN ORDERING PHYSICIAN: Sharan Blackwell MD PATIENT AGE: 62 years COMPARISON: 06/17/2016 FINDINGS: Normal heart size. Bipolar pacer is present.. The lungs are clear without infiltrates, suspicious nodules, or pleural effusions. No acute bony abnormalities. IMPRESSION: No change with no acute finding. Cardiac pacemaker device remains present
[2017-06-04 08:59] VITALS: BP 116/72
== END 2017-06-04 09:00 | disposition home or self-care (01) ==
LOC: ER 06:06
PROVIDERS: Emergency Medicine
DX: K52.9 Noninfective gastroenteritis and colitis, unspecified (principal); Z79.82 Long term (current) use of aspirin; I10 Essential (primary) hypertension; E78.5 Hyperlipidemia, unspecified; K21.9 Gastro-esophageal reflux disease without esophagitis; F41.8 Other specified anxiety disorders

== ENCOUNTER 2017-06-17 15:50 | Emergency (ER) | payer OTHER ==
[~2017-06-17] VITALS: Ht 175.3 cm; Wt 108.9 kg
--- OUTSIDE RECORDS SUMMARY | 2017-06-17 15:57 | External Medical Summary Rpt | CCD ---
Demographics Preferred Language [place] Marital Status Unknown Islam Affiliation Unknown Race Unknown Ethnic Group Unknown Author Author , SHARON HERRERA Address Unknown Phone Immunization No patient found.
--- OUTSIDE RECORDS SUMMARY | 2017-06-17 15:57 | External Medical Summary Rpt ---
Author Author EDNACAROL ANN Rousseau, [employer] Address Unknown Phone Unavailable Results CBC W Auto Differential panel in Blood Observa Value Referen Units Interpr Notes Date tion ce etation Range Basophils 0 - 0.2 K/MM3 Normal No Jun 04 informati 2016 6:10 [#/volume on in AM ] in source Blood by data Automated count Basophils 0.1 - 2.0 % Normal No Jun 04 / informati 2016 6:10 leukocyte on in AM s in source Blood by data Automated count Eosinophi 0.0 - 0.4 K/mm3 Normal No Jun 04 ls informati 2016 6:10 [#/volume on in AM ] in source Blood by data Automated count Eosinophi 0.1 - % Normal No Jun 04 ls/100 12.0 informati 2016 6:10 leukocyte on in AM s in source Blood by data Automated count Granulocy 1.3 - 8.0 K/mm3 Normal No Jun 04 nichelle informati 2017 6:10 [#/volume on in AM ] in source Blood by data Automated count Granulocy 37.0 - % Normal No Jun 04 nichelle/100 80.0 informati 2016 6:10 leukocyte on in AM s in source Blood by data Automated count Hematocri 42.0 - % Normal No Jun 04 t [Volume 52.0 informati 2016 6:10 on in AM Fraction] source of Blood data Hemoglobi 14.1 - g/dL Normal No Jun 04 n 18.0 informati 2016 6:10 [Mass/vol on in AM ume] in source Blood data Lymphocyt 0.7 - 4.5 K/mm3 Normal No Jun 04 es informati 2016 6:10 [#/volume on in AM ] in source Unspecifi data ed specimen by Automated count Lymphocyt 10 - 50 % Normal No Jun 04 es informati 2016 6:10 [#/volume on in AM ] in source Unspecifi data ed specimen by Automated count Erythrocy 27 - 31.2 pg Normal No Jun 04 te mean informati 2016 6:10 corpuscul on in AM ar source hemoglobi data n [Entitic mass] Erythrocy 31.8 - g/dl Normal No Jun 04 te mean 35.4 informati 2016 6:10 corpuscul on in AM ar source hemoglobi data n concentra tion [Mass/vol ume] by Automated count Erythrocy 82.2 - fl Normal No Jun 04 te mean 97.8 informati 2016 6:10 corpuscul on in AM ar volume source [Entitic data volume] by Automated count Monocytes 0.1 - 1.0 K/mm3 Normal No Jun 04 informati 2016 6:10 [#/volume on in AM ] in source Blood by data Automated count Monocytes 1.7 - 9.3 % Normal No Jun 04 /100 informati 2016 6:10 leukocyte on in AM s in source Blood by data Automated count Platelet 7.4 - fl Low No Jun 04 mean 10.4 informati 2016 6:10 volume on in AM [Entitic source volume] data in Blood by Automated count Platelets 142 - 424 K/mm3 Normal No Jun 04 informati 2016 6:10 [#/volume on in AM ] in source Blood data Erythrocy 4.6 - 6.2 M/mm3 Normal No Jun 04 nichelle informati 2016 6:10 [#/volume on in AM ] in source Amniotic data fluid Erythrocy 11.5 - % Normal No Jun 04 te 17.5 informati 2016 6:10 distribut on in AM ion width source [Entitic data volume] by Automated count Leukocyte 4.8 - K/MM3 Normal No Jun 04 s 10.8 informati 2016 6:10 [#/volume on in AM ] in source Blood data Comprehensive metabolic 2000 panel in Serum or Plasma Observa Value Referen Units Interpr Notes Date tion ce etation Range Albumin/G 1.1 - 1.8 No Normal No May 27 lobulin informati informati 2016 5:55 [Mass on in on in PM ratio] in source source Serum or data data Plasma Albumin 3.4 - 5.0 gm/dL Normal No May 27 [Mass/vol informati 2016 5:55 ume] in on in PM Serum or source Plasma data Alkaline 46 - 116 U/L Normal No May 27 phosphata informati 2016 5:55 se on in PM [Enzymati source c data activity/ volume] in Serum or Plasma Bilirubin 0.2 - 1.0 mg/dL Normal No May 27 .total informati 2016 5:55 [Mass/vol on in PM ume] in source Serum or data Plasma Urea 7 - 18 mg/dL Normal No May 27 nitrogen informati 2016 5:55 [Mass/vol on in PM ume] in source Serum or data Plasma Calcium 8.5 - mg/dL Normal No May 27 [Mass/vol 10.1 informati 2016 5:55 ume] in on in PM Serum or source Plasma data Chloride 98 - 107 mmoL/L Normal May 27 [Moles/vo informati 2016 5:55 lume] in on in PM Serum or source Plasma data Carbon 21.0 - mmoL/L Normal No May 27 dioxide, 32.0 informati 2016 5:55 total on in PM [Moles/vo source lume] in data Serum or Plasma Creatinin 0.70 - mg/dL Normal No May 27 e 1.30 informati 2016 5:55 [Mass/vol on in PM ume] in source Serum or data Plasma Creatinin 50 - 200 ML/MIN Normal No May 27 e renal informati 2016 5:55 clearance on in PM source predicted data by Cockcroft -Gault formula Estimated >60 ML/MIN No REFERENCE May 27 informati RANGE: 2017 5:55 glomerula on in >60 PM r source ML/MIN/1. filtratio data 73 SQUARE n rate METERSIf (GF this patient is -A merican, then multiply theresult by 1.210. Globulin 1.3 - 3.2 gm/dL High No May 27 [Mass/vol informati 2016 5:55 ume] in on in PM Serum source data Glucose 74 - 106 mg/dL High May 27 [Mass/vol informati 2016 5:55 ume] in on in PM Serum or source Plasma data Potassium 3.5 - 5.1 mmoL/L Normal No May 27 informati 2016 5:55 [Moles/vo on in PM lume] in source Serum or data Plasma Sodium 136 - 145 mmoL/L Low No May 27 [Moles/vo informati 2017 5:55 lume] in on in PM Serum or source Plasma data Aspartate 15 - 37 U/L Normal No May 27 informati 2016 5:55 aminotran on in PM sferase source [Enzymati data c activity/ volume] in Serum or Plasma Alanine 12 - 78 U/L Normal No May 27 aminotran informati 2016 5:55 sferase on in PM [Enzymati source c data activity/ volume] in Serum or Plasma Protein 6.4 - 8.2 gm/dL Normal No May 27 [Mass/vol informati 2016 5:55 ume] in on in PM Serum or source Plasma data Lipase [Enzymatic activity/volume] in Serum or Plasma Observa Value Referen Units Interpr Notes Date tion ce etation Range Lipase 73 - 393 U/L Normal No May 27 [Enzymati informati 2016 5:55 c on in PM activity/ source volume] data in Serum or Plasma CBC W Auto Differential panel in Blood Observa Value Referen Units Interpr Notes Date tion ce etation Range Basophils 0 - 0.2 K/MM3 Normal No May 27 inform2016 5:55 [#/volume on in PM ] in source Blood by data Automated count Basophils 0.1 - 2.0 % Normal No May 27 /100 informati 2016 5:55 leukocyte on in PM s in source Blood by data Automated count Eosinophi 0.0 - 0.4 K/mm3 Normal No May 27 ls ati 2016 5:55 [#/volume on in PM ] in source Blood by data Automated count Eosinophi 0.1 - % Normal No May 27 ls/100 12.0 informati 2016 5:55 leukocyte on in PM s in source Blood by data Automated count Granulocy 1.3 - 8.0 K/mm3 Normal No May 27 nichelle ati 2016 5:55 [#/volume on in PM ] in source Blood by data Automated count Granulocy 37.0 - % Normal No May 27 nichelle/100 80.0 informati 2016 5:55 leukocyte on in PM s in source Blood by data Automated count Hematocri 42.0 - % Normal No May 27 t [Volume 52.0 ati 2016 5:55 on in PM Fraction] source of Blood data Hemoglobi 14.1 - g/dL Normal No May 27 n 18.0 informati 2016 5:55 [Mass/vol on in PM ume] in source Blood data Lymphocyt 0.7 - 4.5 K/mm3 Normal No May 27 es informati 2016 5:55 [#/volume on in PM ] in source Unspecifi data ed specimen by Automated count Lymphocyt 10 - 50 % Normal No May 27 es informati 2016 5:55 [#/volume on in PM ] in source Unspecifi data ed specimen by Automated count Erythrocy 27 - 31.2 pg Normal No May 27 te mean inform2016 5:55 corpuscul on in PM ar source hemoglobi data n [Entitic mass] Erythrocy 31.8 - g/dl Normal No May 27 te mean 35.4 inform2016 5:55 corpuscul on in PM ar source hemoglobi data n concentra tion [Mass/vol ume] by Automated count Erythrocy 82.2 - fl Normal No May 27 te mean 97.8 informati 2016 5:55 corpuscul on in PM ar volume source [Entitic data volume] by Automated count Monocytes 0.1 - 1.0 K/mm3 Normal No May 7 2016 5:55 [#/volume on in PM ] in source Blood by data Automated count Monocytes 1.7 - 9.3 % Normal No May 7 /100 informati 2016 5:55 leukocyte on in PM s in source Blood by data Automated count Platelet 7.4 - fl Normal No May 27 mean 10.4 informati 2016 5:55 volume on in PM [Entitic source volume] data in Blood by Automated count Platelets 142 - 424 K/mm3 No No May 7 informati informati 2016 5:55 [#/volume on in on in PM ] in source source Blood data data Erythrocy 4.6 - 6.2 M/mm3 Normal No May 7 nichelle informati 2016 5:55 [#/volume on in PM ] in source Amniotic data fluid Erythrocy 11.5 - % Normal No May 27 te 17.5 informati 2016 5:55 distribut on in PM ion width source [Entitic data volume] by Automated count Leukocyte 4.8 - K/MM3 Normal No May 7 s 10.8 informati 2016 5:55 [#/volume on in PM ] in source Blood data Influenza virus A+B Ag [Presence] in Unspecified specimen Observa Value Referen Units Interpr Notes Date tion ce etation Range Influen NOT NOT No No No Apr 16 za DETECTE DETECTD informa informa informa 2017 virus A D tion in tion in tion in 11:05 Ag source source source AM [Presen data data data ce] in Unspeci fied specime n INFLUEN NOT NOT No No LOT # Apr 16 ZA B DETECTE DETECTD informa informa [id number] 2017 ANTIGEN D tion in tion in EXP 11:05 source source DATE AM data data [id number]
--- OUTSIDE RECORDS SUMMARY | 2017-06-17 15:57 | External Medical Summary Rpt | CCD ---
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 complet or 017 ng/mL 06 ed plasma 08:00 troponi n i.cardi ac measu CBC w auto diff (06-04-2017 06:10) Divide % 06-04-2 = 8.3 % 1.7-9.3 complet 017 ed 06:10 Automat 06-04-2 = 7.3 7.4-10. complet ed 017 fl 4 ed blood 06:10 platele t mean volume madalyn Blood = 263 142-424 complet platele 017 K/mm3 ed t count 06:10 Red 11-15-2 = 5.20 4.6-6.2 complet blood 017 M/mm3 ed cell 06:10 count Automat = 13.6 11.5-17 complet ed 017 % .5 ed erythro 06:10 cyte distrib ution width Blood = 7.3 4.8-10. complet leukocy 017 K/MM3 8 ed nichelle 06:10 count (number /volume ) Automat = 0.1 0-0.2 complet ed 017 K/MM3 ed blood 06:10 basophi l count (count/ vo Baso % = 1.1 % 0.1-2.0 complet 017 ed 06:10 Automat = 0.2 0.0-0.4 complet ed 017 K/mm3 ed blood 06:10 eosinop hil count Automat = 2.5 % 0.1-12. complet ed 017 0 ed blood 06:10 eosinop hils/10 0 leukocy t Blood = 4.1 1.3-8.0 complet granulo 017 K/mm3 ed cytes 06:10 automat ed count (numb Granulo = 56.8 37.0-80 complet cyte 017 % .0 ed percent 06:10 age Blood = 46.7 42.0-52 complet hematoc 017 % .0 ed rit 06:10 (volume fractio n) Blood = 15.3 14.1-18 complet hemoglo 017 g/dL .0 ed bin 06:10 measure ment (mass/v olum Absolut = 2.3 0.7-4.5 complet e 017 K/mm3 ed lymphoc 06:10 yte count Lymphoc = 31.2 10-50 complet yte 017 % ed count, 06:10 blood, automat ed Mean = 29.5 27-31.2 complet corpusc 017 pg ed ular 06:10 hemoglo bin (MCH) determ Automat = 32.8 31.8-35 complet ed 017 g/dl .4 ed erythro 06:10 cyte mean corpusc ular h Automat 11-15-2 = 89.9 82.2-97 complet ed 017 fl .8 ed erythro 06:10 cyte mean corpusc ular v Absolut = 0.6 0.1-1.0 complet e 017 K/mm3 ed monocyt 06:10 e count Cardiac enzymes (06-04-2017 06:10) Serum 06-04-2 = 0.9 0-4.0 complet or 017 U/L ed plasma 06:10 creatin e kinase MB (CK-M Serum = 1.5 0.0-3.6 complet or 017 ng/mL ed plasma 06:10 creatin e kinase MB measu Serum = 161 39-308 complet or 017 U/L ed plasma 06:10 creatin e kinase measure m Serum 2 < 0.02 0.00-0. complet or 017 ng/mL 06 ed plasma 06:10 troponi n i.cardi ac measu Comprehensive metabolic panel (06-04-2017 06:10) Serum 06-04-2 = 0.3 0.2-1.0 complet or 017 mg/dL ed plasma 06:10 total bilirub in measure m Serum 2 = 1.3 1.1-1.8 complet or 017 ed plasma 06:10 albumin /globul in mass ra Serum = 4.1 3.4-5.0 complet or 017 gm/dL ed plasma 06:10 albumin measure ment (mas Serum 2 = 75 46-116 complet or 017 U/L ed plasma 06:10 alkalin e phospha tase madalyn Serum 06-04-2 = 16 7-18 complet or 017 mg/dL ed plasma 06:10 urea nitroge n measure men Serum 06-04-2 = 9.4 8.5-10. complet or 017 mg/dL 1 ed plasma 06:10 calcium measure ment (mas Serum 06-04-2 = 103 98-107 complet or 017 mmoL/L ed plasma 06:10 chlorid e measure ment (mo Carbon 06-04-2 = 30 21.0-32 complet dioxide 017 mmoL/L .0 ed 06:10 measure ment Serum 06-04-2 = 1.1 0.70-1. complet or 017 mg/dL 30 ed plasma 06:10 creatin ine measure ment ( Estimat = 107 50-200 complet ion of 017 ML/MIN ed creatin 06:10 ine renal clearan ce Estimat = 68 >60 complet ed 017 ML/MIN ed glomeru 06:10 lar filtrat ion rate (GF Comment: REFERENCE RANGE: >60 ML/MIN/1.73 SQUARE METERS Comment: If this patient is -[place], then multiply the Comment: result by 1.210. Serum = 3.1 1.3-3.2 complet globuli 017 gm/dL ed n 06:10 measure ment (mass/v olume) Serum = 125 74-106 complet or 017 mg/dL ed plasma 06:10 glucose measure ment (mas Serum = 4.1 3.5-5.1 complet potassi 017 mmoL/L ed um 06:10 measure ment Serum = 138 136-145 complet sodium 017 mmoL/L ed measure 06:10 ment Serum = 16 15-37 complet or 017 U/L ed plasma 06:10 asparta te aminotr ansfera ALT = 36 12-78 complet (SGPT) 017 U/L ed ser/sheryl 06:10 s Protein = 7.2 6.4-8.2 complet total 017 gm/dL ed ser/sheryl 06:10 s CBC w auto diff (05-27-2017 17:55) Automat = 0.1 0-0.2 complet ed 017 K/MM3 ed blood 17:55 basophi l count (count/ vo Baso % = 0.9 % 0.1-2.0 complet 017 ed 17:55 Automat = 0.1 0.0-0.4 complet ed 017 K/mm3 ed blood 17:55 eosinop hil count Automat = 1.0 % 0.1-12. complet ed 017 0 ed blood 17:55 eosinop hils/10 0 leukocy t Blood = 6.0 1.3-8.0 complet granulo 017 K/mm3 ed cytes 17:55 automat ed count (numb Granulo = 72.2 37.0-80 complet cyte 017 % .0 ed percent 17:55 age Blood = 49.3 42.0-52 complet hematoc 017 % .0 ed rit 17:55 (volume fractio n) Blood = 16.4 14.1-18 complet hemoglo 017 g/dL .0 ed bin 17:55 measure ment (mass/v olum Absolut = 1.6 0.7-4.5 complet e 017 K/mm3 ed lymphoc 17:55 yte count Lymphoc = 19.2 10-50 complet yte 017 % ed count, 17:55 blood, automat ed Mean = 29.4 27-31.2 complet corpusc 017 pg ed ular 17:55 hemoglo bin (MCH) determ Automat = 33.4 31.8-35 complet ed 017 g/dl .4 ed erythro 17:55 cyte mean corpusc ular h Automat = 87.9 82.2-97 complet ed 017 fl .8 ed erythro 17:55 cyte mean corpusc ular v Absolut = 0.6 0.1-1.0 complet e 017 K/mm3 ed monocyt 17:55 e count Divide % = 6.7 % 1.7-9.3 complet 017 ed 17:55 Automat = 7.4 7.4-10. complet ed 017 fl 4 ed blood 17:55 platele t mean volume madalyn Blood = 345 142-424 complet platele 017 K/mm3 ed t count 17:55 Red = 5.60 4.6-6.2 complet blood 017 M/mm3 ed cell 17:55 count Automat = 13.5 11.5-17 complet ed 017 % .5 ed erythro 17:55 cyte distrib ution width Blood = 8.3 4.8-10. complet leukocy 017 K/MM3 8 ed nichelle 17:55 count (number /volume ) Comprehensive metabolic panel (05-27-2017 17:55) Serum = 1.3 1.1-1.8 complet or 017 ed plasma 17:55 albumin /globul in mass ra Serum = 4.4 3.4-5.0 complet or 017 gm/dL ed plasma 17:55 albumin measure ment (mas Serum = 73 46-116 complet or 017 U/L ed plasma 17:55 alkalin e phospha tase madalyn Serum = 0.4 0.2-1.0 complet or 017 mg/dL ed plasma 17:55 total bilirub in measure m Serum = 15 7-18 complet or 017 mg/dL ed plasma 17:55 urea nitroge n measure men Serum = 9.3 8.5-10. complet or 017 mg/dL 1 ed plasma 17:55 calcium measure ment (mas Serum = 101 98-107 complet or 017 mmoL/L ed plasma 17:55 chlorid e measure ment (mo Carbon = 28 21.0-32 complet dioxide 017 mmoL/L .0 ed 17:55 measure ment Serum = 1.1 0.70-1. complet or 017 mg/dL 30 ed plasma 17:55 creatin ine measure ment ( Estimat = 107 50-200 complet ion of 017 ML/MIN ed creatin 17:55 ine renal clearan ce Estimat = 68 >60 complet ed 017 ML/MIN ed glomeru 17:55 lar filtrat ion rate (GF Comment: REFERENCE RANGE: >60 ML/MIN/1.73 SQUARE METERS Comment: If this patient is -[place], then multiply the Comment: result by 1.210. Serum = 3.4 1.3-3.2 complet globuli 017 gm/dL ed n 17:55 measure ment (mass/v olume) Serum = 110 74-106 complet or 017 mg/dL ed plasma 17:55 glucose measure ment (mas Serum = 4.0 3.5-5.1 complet potassi 017 mmoL/L ed um 17:55 measure ment Serum = 135 136-145 complet sodium 017 mmoL/L ed measure 17:55 ment Serum = 23 15-37 complet or 017 U/L ed plasma 17:55 asparta te aminotr ansfera ALT = 42 12-78 complet (SGPT) 017 U/L ed ser/sheryl 17:55 s Protein = 7.8 6.4-8.2 complet total 017 gm/dL ed ser/sheryl 17:55 s Lipase measurement (05-27-2017 17:55) Lipase = 194 73-393 complet measure 017 U/L ed ment 17:55 Urinalysis with microscopy (05-27-2017 17:20) Bacteri TRACE O complet a 017 TRACE L ed detecti 17:20 on in urine sedimen t by Urine CLEAR CLEAR complet appeara 017 CLEAR L ed nce 17:20 determi nation Urine NEGATIV NEG complet total 017 E ed bilirub 17:20 NEGATIV in E L detecti on by test Urine NEGATIV NEG complet blood 017 E ed detecti 17:20 NEGATIV on E L Urine YELLOW YELLOW complet color 017 YELLOW ed 17:20 L Glucose = NEG complet ur 017 NEGATIV ed test 17:20 E strip Urine NEGATIV NEG complet ketones 017 E ed 17:20 NEGATIV detecti E L on by mg/dL automat ed nichelle Mucus NEGATIV NEG complet detecti 017 E ed on in 17:20 NEGATIV urine E L sedimen t by lig Urine NEGATIV NEG complet nitrite 017 E ed 17:20 NEGATIV detecti E L on by test strip Urine = 6.0 5.0-8.5 complet pH 017 ed 17:20 Urine = NEG complet protein 017 NEGATIV ed 17:20 E mg/dL measure ment by automat ed t [place] NONE 0 complet cytes 017 NONE L ed detecti 17:20 rbc/hpf on in urine sedimen t Urine < = 1.005-1 complet specifi 017 1.005 .030 ed c 17:20 gravity measure ment [place] NONE OCC complet s 017 NONE L ed epithel 17:20 #/hpf ial cells detecti on in u Urine 0.2 0.2 NEG complet urobili 017 L ed nogen 17:20 E.U./dL detecti on by test str Urine = NONE O complet leukocy 017 wbc/hpf ed nichelle 17:20 count (number /volume ) Rapid influenza A and B antigen detectio (05-05-2017 11:05) Influen NOT NOT complet za A ag 017 DETECTE DETECTD ed QL 11:05 D NOT DETECTE D L INFLUEN NOT NOT complet ZA B 017 DETECTE DETECTD ed ANTIGEN 11:05 D Comment: LOT # [id number] EXP DATE Influenza virus A+B Ag [Presence] in Unspecified specimen (05-05-2017 11:05) Influen NOT NOT complet za 017 DETECTE DETECTD ed virus A 11:05 D Ag [Presen ce] in Unspeci fied specime n INFLUEN NOT NOT complet ZA B 017 DETECTE DETECTD ed ANTIGEN 11:05 D
--- OUTSIDE RECORDS SUMMARY | 2017-06-17 15:57 | External Medical Summary Rpt | CCD ---
Demographics Preferred Language Congolese Marital Status Unknown Restorationism Affiliation Unknown Race Unknown Ethnic Group Unknown Author Author , SHARON HERRERA Address Unknown Phone Immunization No patient found.
--- OUTSIDE RECORDS SUMMARY | 2017-06-17 15:57 | External Medical Summary Rpt | CCD ---
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 [...] 017 K/mm3 ed monocyt 17:55 e count [place] % = 6.7 % 1.7-9.3 complet 017 [...] SQUARE METERS Comment: If this patient is -[place]ine[place], then multiply the Comment: result by 1.210. [...] ed ANTIGEN 11:05 D Comment: LOT # [id number] EXP DATE Influenza virus A+B Ag [Presence] in Unspecified specimen (05-05-2017 11:05) Influen NOT NOT complet za 017 DETECTE DETECTD ed virus A 11:05 D Ag [Presen ce] in Unspeci fied specime n INFLUEN NOT NOT complet ZA B 017 DETECTE DETECTD ed ANTIGEN 11:05 D
--- OUTSIDE RECORDS SUMMARY | 2017-06-17 15:57 | External Medical Summary Rpt ---
[...] 16 ZA B DETECTE DETECTD informa informa [id number] 2017 ANTIGEN D tion in tion in EXP 11:05 source source DATE AM data data [id number]
--- NOTE | 2017-06-17 16:50 | Urgent Treatment Center Report ---
History of Present Issue Date/Time Seen by Provider 06/17/17 1642 Visit Reason Pt arrived:Walked Presenting Problem:NAUSEA, VOMITING, STOMACH CRAMPS Location if Accident: Onset of symptoms date/time:/ or onset unknown for:MEDICAL HX UNKNOWN Have you (or family members/close friends) recently traveled outside the [place]? N If Yes, where/when: Have you had exposure to infectious disease within the past month? TB? Other? 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 No Angina: Yes [place]: No Hypertension? Yes Hyperlipidemia? Yes CHF? No DVT? No PE? No COPD? No Asthma? No Anemia? No GERD? Yes Gastric ulcers? Yes GI Bleed? No Hernia? Yes Thyroid Problems? No Hypothyroidism? No CVA? No Seizures? No Diabetes? No Renal Insuffiency? No UTI? No Stones? Yes BPH? No GB Disease: No Nephritic Syndrome? No Asplenia? No Hepatitis? No Sickle Cell Disease? No Arthritis? Yes Migraines? Yes Cataracts? No Glaucoma? No MRSA? No HIV? No TB? No Anxiety? Yes Depression? Yes Cancer? Yes Site: SKIN More? No Immunization HX DT/Tetanus 1-4 Years Ago Surgical Hx Previous Surgery?Y PACEMAKER FINGER UMBILICAL HERNIA Social History Smoking Hx Smoker: Never Smoker Tobacco: No Alcohol Alcohol: No Review of Systems All Other Systems Reviewed and Negative Gastrointestinal diarrhea, nausea, vomiting Physical Exam Vital Signs Vital Signs Date Time Temp Pulse Resp B/P Pulse O2 O2 Flow FiO2 Ox Delivery Rate 06/17 1559 98.3 74 20 147/75 99 General Appearance normal appearance, WD/WN, no apparent distress Respiratory Status Yes: trachea midline, chest symmetrical, non tender chest. No: respiratory distress. Lung Sounds bilateral: normal breath sounds, lungs clear. Cardiovascular normal exam, regular rate/rhythm, no peripheral edema Gastrointestinal normal bowel sounds, normal exam, non tender, soft, no guarding , no rebound Neurologic alert, normal exam, oriented x 3 Medical Decision Making LABS/Meds/Orders Pt receiving controlled substance in ED? No Results/Orders Current Medication Orders Sig/Winnie Start time Last Medication Dose Route Stop Time Status Admin Multi-Ingredient GI 60 ML ONCE ONE 06/17 1700 DC 06/17 Drug PO 06/17 1701 165 Ondansetron HCl 4 MG ONCE ONE 06/17 1700 DC 06/17 SL 06/17 1701 165 Multi-Ingredient GI 0 .STK-MED ONE 06/17 1655 DC Drug PO Ondansetron HCl 0 .STK-MED ONE 06/17 1653 DC .ROUTE Progress [facility] Progress Notes Comment Patient states that he feels much better after the medication and ready for discharge home Departure Departure Time of Disposition 1714 Disposition DC Home or Self Care(routine) Clinical Impression Primary Impression: Gastroenteritis Condition STABLE Referrals FAHAD CHAUDHARY APRN (Family): 3 Days-Call Office Patient Instructions DI for Viral Gastroenteritis -- Adult, Viral Gastroenteritis Additional Instructions try very small amounts of water or suck on ice chips. diarrhea. children and infants should use products formulated for children, like oral rehydration solutions. Never give aspirin to children or teenagers with a viral illness. This can cause Paxton syndrome, a potentially life-threatening condition. Discharge Counseling Counseled pt/family regarding diagnosis, medications/RX, home care, follow up needs Prescriptions Current Visit Scripts Ondansetron (Zofran 4MG Odt) 4 MG PO Q6HP PRN NAUSEA AND VOMITING #20 TAB at 1713
[2017-06-17] MEDS ORDERED: ZOFRAN ODT4 MG PO (17:15)
[2017-06-17 17:17] VITALS: BP 147/75
[2017-07-03] MEDS ORDERED: ZOFRAN ODT4 MG PO (15:18)
[2017-07-03] MEDS ORDERED: BENTYL10 MG PO (15:28)
== END 2017-06-17 17:17 | disposition home or self-care (01) ==
LOC: UTC 15:50
DX: K52.9 Noninfective gastroenteritis and colitis, unspecified (principal); I10 Essential (primary) hypertension; E78.5 Hyperlipidemia, unspecified; F41.8 Other specified anxiety disorders; Z79.82 Long term (current) use of aspirin

== ENCOUNTER 2017-06-24 00:50 | Emergency (ER) | payer OTHER ==
[~2017-06-24] VITALS: Ht 175.3 cm; Wt 117.9 kg
--- OUTSIDE RECORDS SUMMARY | 2017-06-24 01:05 | External Medical Summary Rpt | CCD ---
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 complet or 017 ng/mL 06 ed plasma 08:00 troponi n i.cardi ac measu Comprehensive metabolic panel (06-04-2017 06:10) Protein 11-15-2 = 7.2 6.4-8.2 complet total 017 gm/dL ed ser/sheryl 06:10 s ALT 11-15-2 = 36 12-78 complet (SGPT) 017 U/L ed ser/sheryl 06:10 s Serum 11-15-2 = 16 15-37 complet or 017 U/L ed plasma 06:10 asparta te aminotr ansfera Serum 11-15-2 = 138 136-145 complet sodium 017 mmoL/L ed measure 06:10 ment Serum 06-04-2 = 4.1 3.5-5.1 complet potassi 017 mmoL/L ed um 06:10 measure ment Serum 06-04-2 = 125 74-106 complet or 017 mg/dL ed plasma 06:10 glucose measure ment (mas Serum 06-04-2 = 3.1 1.3-3.2 complet globuli 017 gm/dL ed n 06:10 measure ment (mass/v olume) Estimat 06-04-2 = 68 >60 complet ed 017 ML/MIN ed glomeru 06:10 lar filtrat ion rate (GF Comment: REFERENCE RANGE: >60 ML/MIN/1.73 SQUARE METERS Comment: If this patient is -[place], then multiply the Comment: result by 1.210. Estimat 2 = 107 50-200 complet ion of 017 ML/MIN ed creatin 06:10 ine renal clearan ce Serum = 1.1 0.70-1. complet or 017 mg/dL 30 ed plasma 06:10 creatin ine measure ment ( Carbon = 30 21.0-32 complet dioxide 017 mmoL/L .0 ed 06:10 measure ment Serum 06-04-2 = 103 98-107 complet or 017 mmoL/L ed plasma 06:10 chlorid e measure ment (mo Serum 06-04-2 = 9.4 8.5-10. complet or 017 mg/dL 1 ed plasma 06:10 calcium measure ment (mas Serum 06-04-2 = 16 7-18 complet or 017 mg/dL ed plasma 06:10 urea nitroge n measure men Serum 06-04-2 = 75 46-116 complet or 017 U/L ed plasma 06:10 alkalin e phospha tase madalyn Serum 06-04- = 4.1 3.4-5.0 complet or 017 gm/dL ed plasma 06:10 albumin measure ment (mas Serum 06-04-2 = 1.3 1.1-1.8 complet or 017 ed plasma 06:10 albumin /globul in mass ra Serum 06-04-2 = 0.3 0.2-1.0 complet or 017 mg/dL ed plasma 06:10 total bilirub in measure m Cardiac enzymes (06-04-2017 06:10) Serum < 0.02 0.00-0. complet or 017 ng/mL 06 ed plasma 06:10 troponi n i.cardi ac measu Serum = 161 39-308 complet or 017 U/L ed plasma 06:10 creatin e kinase measure m Serum = 1.5 0.0-3.6 complet or 017 ng/mL ed plasma 06:10 creatin e kinase MB measu Serum = 0.9 0-4.0 complet or 017 U/L ed plasma 06:10 creatin e kinase MB (CK-M CBC w auto diff (06-04-2017 06:10) Absolut = 0.6 0.1-1.0 complet e 017 K/mm3 ed monocyt 06:10 e count Automat = 89.9 82.2-97 complet ed 017 fl .8 ed erythro 06:10 cyte mean corpusc ular v Automat = 32.8 31.8-35 complet ed 017 g/dl .4 ed erythro 06:10 cyte mean corpusc ular h Mean = 29.5 27-31.2 complet corpusc 017 pg ed ular 06:10 hemoglo bin (MCH) determ Lymphoc = 31.2 10-50 complet yte 017 % ed count, 06:10 blood, automat ed Absolut = 2.3 0.7-4.5 complet e 017 K/mm3 ed lymphoc 06:10 yte count Blood = 15.3 14.1-18 complet hemoglo 017 g/dL .0 ed bin 06:10 measure ment (mass/v olum Blood = 46.7 42.0-52 complet hematoc 017 % .0 ed rit 06:10 (volume fractio n) Granulo = 56.8 37.0-80 complet cyte 017 % .0 ed percent 06:10 age Blood = 4.1 1.3-8.0 complet granulo 017 K/mm3 ed cytes 06:10 automat ed count (numb Automat = 2.5 % 0.1-12. complet ed 017 0 ed blood 06:10 eosinop hils/10 0 leukocy t Automat = 0.2 0.0-0.4 complet ed 017 K/mm3 ed blood 06:10 eosinop hil count Baso % = 1.1 % 0.1-2.0 complet 017 ed 06:10 Automat = 0.1 0-0.2 complet ed 017 K/MM3 ed blood 06:10 basophi l count (count/ vo Blood = 7.3 4.8-10. complet leukocy 017 K/MM3 8 ed nichelle 06:10 count (number /volume ) Automat = 13.6 11.5-17 complet ed 017 % .5 ed erythro 06:10 cyte distrib ution width Red = 5.20 4.6-6.2 complet blood 017 M/mm3 ed cell 06:10 count Blood = 263 142-424 complet platele 017 K/mm3 ed t count 06:10 Automat = 7.3 7.4-10. complet ed 017 fl 4 ed blood 06:10 platele t mean volume madalyn [place] % = 8.3 % 1.7-9.3 complet 017 ed 06:10 CBC w auto diff (05-27-2017 17:55) Blood = 8.3 4.8-10. complet leukocy 017 K/MM3 8 ed nichelle 17:55 count (number /volume ) Automat = 13.5 11.5-17 complet ed 017 % .5 ed erythro 17:55 cyte distrib ution width Red = 5.60 4.6-6.2 complet blood 017 M/mm3 ed cell 17:55 count Blood = 345 142-424 complet platele 017 K/mm3 ed t count 17:55 Automat = 7.4 7.4-10. complet ed 017 fl 4 ed blood 17:55 platele t mean volume madalyn [place] % = 6.7 % 1.7-9.3 complet 017 ed 17:55 Absolut = 0.6 0.1-1.0 complet e 017 K/mm3 ed monocyt 17:55 e count Automat = 87.9 82.2-97 complet ed 017 fl .8 ed erythro 17:55 cyte mean corpusc ular v Automat = 33.4 31.8-35 complet ed 017 g/dl .4 ed erythro 17:55 cyte mean corpusc ular h Mean = 29.4 27-31.2 complet corpusc 017 pg ed ular 17:55 hemoglo bin (MCH) determ Lymphoc = 19.2 10-50 complet yte 017 % ed count, 17:55 blood, automat ed Absolut = 1.6 0.7-4.5 complet e 017 K/mm3 ed lymphoc 17:55 yte count Blood = 16.4 14.1-18 complet hemoglo 017 g/dL .0 ed bin 17:55 measure ment (mass/v olum Blood = 49.3 42.0-52 complet hematoc 017 % .0 ed rit 17:55 (volume fractio n) Granulo = 72.2 37.0-80 complet cyte 017 % .0 ed percent 17:55 age Blood = 6.0 1.3-8.0 complet granulo 017 K/mm3 ed cytes 17:55 automat ed count (numb Automat = 1.0 % 0.1-12. complet ed 017 0 ed blood 17:55 eosinop hils/10 0 leukocy t Automat = 0.1 0.0-0.4 complet ed 017 K/mm3 ed blood 17:55 eosinop hil count Baso % = 0.9 % 0.1-2.0 complet 017 ed 17:55 Automat = 0.1 0-0.2 complet ed 017 K/MM3 ed blood 17:55 basophi l count (count/ vo Lipase measurement (05-27-2017 17:55) Lipase = 194 73-393 complet measure 017 U/L ed ment 17:55 Comprehensive metabolic panel (05-27-2017 17:55) Protein = 7.8 6.4-8.2 complet total 017 gm/dL ed ser/sheryl 17:55 s ALT = 42 12-78 complet (SGPT) 017 U/L ed ser/sheryl 17:55 s Serum = 23 15-37 complet or 017 U/L ed plasma 17:55 asparta te aminotr ansfera Serum = 135 136-145 complet sodium 017 mmoL/L ed measure 17:55 ment Serum = 4.0 3.5-5.1 complet potassi 017 mmoL/L ed um 17:55 measure ment Serum = 110 74-106 complet or 017 mg/dL ed plasma 17:55 glucose measure ment (mas Serum = 3.4 1.3-3.2 complet globuli 017 gm/dL ed n 17:55 measure ment (mass/v olume) Estimat = 68 >60 complet ed 017 ML/MIN ed glomeru 17:55 lar filtrat ion rate (GF Comment: REFERENCE RANGE: >60 ML/MIN/1.73 SQUARE METERS Comment: If this patient is -[place], then multiply the Comment: result by 1.210. Estimat = 107 50-200 complet ion of 017 ML/MIN ed creatin 17:55 ine renal clearan ce Serum = 1.1 0.70-1. complet or 017 mg/dL 30 ed plasma 17:55 creatin ine measure ment ( Carbon = 28 21.0-32 complet dioxide 017 mmoL/L .0 ed 17:55 measure ment Serum = 101 98-107 complet or 017 mmoL/L ed plasma 17:55 chlorid e measure ment (mo Serum = 9.3 8.5-10. complet or 017 mg/dL 1 ed plasma 17:55 calcium measure ment (mas Serum = 15 7-18 complet or 017 mg/dL ed plasma 17:55 urea nitroge n measure men Serum = 0.4 0.2-1.0 complet or 017 mg/dL ed plasma 17:55 total bilirub in measure m Serum = 73 46-116 complet or 017 U/L ed plasma 17:55 alkalin e phospha tase madalyn Serum = 4.4 3.4-5.0 complet or 017 gm/dL ed plasma 17:55 albumin measure ment (mas Serum = 1.3 1.1-1.8 complet or 017 ed plasma 17:55 albumin /globul in mass ra Urinalysis with microscopy (05-27-2017 17:20) Urine = NONE O complet leukocy 017 wbc/hpf ed nichelle 17:20 count (number /volume ) Urine 0.2 0.2 NEG complet urobili 017 L ed nogen 17:20 E.U./dL detecti on by test str [place] NONE OCC complet s 017 NONE L ed epithel 17:20 #/hpf ial cells detecti on in u Urine < = 1.005-1 complet specifi 017 1.005 .030 ed c 17:20 gravity measure ment [place] NONE 0 complet cytes 017 NONE L ed detecti 17:20 rbc/hpf on in urine sedimen t Urine = NEG complet protein 017 NEGATIV ed 17:20 E mg/dL measure ment by automat ed t Urine = 6.0 5.0-8.5 complet pH 017 ed 17:20 Urine NEGATIV NEG complet nitrite 017 E ed 17:20 NEGATIV detecti E L on by test strip Mucus NEGATIV NEG complet detecti 017 E ed on in 17:20 NEGATIV urine E L sedimen t by lig Urine NEGATIV NEG complet ketones 017 E ed 17:20 NEGATIV detecti E L on by mg/dL automat ed nichelle Glucose = NEG complet ur 017 NEGATIV ed test 17:20 E strip Urine YELLOW YELLOW complet color 017 YELLOW ed 17:20 L Urine NEGATIV NEG complet blood 017 E ed detecti 17:20 NEGATIV on E L Urine NEGATIV NEG complet total 017 E ed bilirub 17:20 NEGATIV in E L detecti on by test Urine CLEAR CLEAR complet appeara 017 CLEAR L ed nce 17:20 determi nation Bacteri TRACE O complet a 017 TRACE L ed detecti 17:20 on in urine sedimen t by Rapid influenza A and B antigen detectio (05-05-2017 11:05) INFLUEN NOT NOT complet ZA B 017 DETECTE DETECTD ed ANTIGEN 11:05 D Comment: LOT # [id number] EXP DATE Influen NOT NOT complet za A ag 017 DETECTE DETECTD ed QL 11:05 D NOT DETECTE D L Influenza virus A+B Ag [Presence] in Unspecified specimen (05-05-2017 11:05) Influen NOT NOT complet za 017 DETECTE DETECTD ed virus A 11:05 D Ag [Presen ce] in Unspeci fied specime n INFLUEN NOT NOT complet ZA B 017 DETECTE DETECTD ed ANTIGEN 11:05 D
--- OUTSIDE RECORDS SUMMARY | 2017-06-24 01:05 | External Medical Summary Rpt | CCD ---
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 [...] blood 06:10 platele t mean volume madalyn [place] % = 8.3 % 1.7-9.3 complet 017 [...] blood 17:55 platele t mean volume madalyn [place] % = 6.7 % 1.7-9.3 complet 017 [...] 42 12-78 complet (SGPT) 017 U/L ed ser/sehryl 17:55 s Serum = 23 15-37 complet [...] SQUARE METERS Comment: If this patient is -[place], then multiply the Comment: result by 1.210. [...] ed ANTIGEN 11:05 D Comment: LOT # [id number] EXP DATE Influen NOT NOT complet za [...]
--- OUTSIDE RECORDS SUMMARY | 2017-06-24 01:06 | External Medical Summary Rpt | CCD ---
Demographics Preferred Language [place] Marital Status Unknown Baptism Affiliation Unknown Race Unknown Ethnic Group Unknown Author Author , SHARON HERRERA Address Unknown Phone Immunization Unable to retrieve immunization data due to connection failure with Immunization Registry. Please try again later.
--- OUTSIDE RECORDS SUMMARY | 2017-06-24 01:06 | External Medical Summary Rpt | CCD ---
Demographics Preferred Language Czech Marital Status Unknown Faith Affiliation Unknown Race Unknown Ethnic Group Unknown Author Author , SHARON HERRERA Address Unknown Phone Immunization Unable to retrieve immunization data due to connection failure with Immunization Registry. Please try again later.
[2017-06-24 01:17] LABS: STREP SCREEN (RAPID) NEGATIVE
[2017-06-24] MEDS ORDERED: KEFLEX 500MG.500 MG PO (02:19)
--- NOTE | 2017-06-24 02:20 | Emergency Room Report ---
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 N Clinical Suspician of Infection? N Mental Status: 1 - Regular (Normal Baseline) Sepsis Risk:Low Sepsis Risk Have you (or family members/close friends) recently traveled outside the [place]? N If Yes, where/when: Have you had exposure to infectious disease within the past month? N TB? Other? Specify: Source patient, RN notes reviewed, family, old records Exam Limitations no limitations Comment sore throat and head congestion over the last few days - no sig cough and no rash Cardiac Chest Pain Chest pain indicative of cardiac No Timing/Duration this evening Severity moderate ALLERGIES Coded Allergies: No Known Allergies (07/25/16) Home Medications Reported Medications ASPIRIN (Aspirin) 81 MG PO DAILY Omeprazole (Omeprazole 20MG) 20 MG PO DAILY #30 Verapamil Hcl (Verapamil ER) 180 MG PO DAILY #30 History Medical History General CAD? No Angina: Yes [place]: No Hypertension? Yes Hyperlipidemia? Yes CHF? No DVT? No PE? No COPD? No Asthma? No Anemia? No GERD? Yes Gastric ulcers? Yes GI Bleed? No Hernia? Yes Thyroid Problems? No Hypothyroidism? No CVA? No Seizures? No Diabetes? No Renal Insuffiency? No End Stage Renal Disease? No UTI? No Stones? Yes BPH? No GB Disease: No Nephritic Syndrome? No Asplenia? No Hepatitis? No Sickle Cell Disease? No Arthritis? Yes Migraines? Yes Cataracts? No Glaucoma? No MRSA? No HIV? No TB? No Anxiety? Yes Depression? Yes Cancer? Yes Site: SKIN More? No Immunization Hx DT/Tetanus 1-4 Years Ago Surgical Hx Previous Surgery?Y PACEMAKER FINGER UMBILICAL HERNIA Social History Smoking Hx Smoker: Never Smoker Tobacco: No Alcohol Alcohol: No Drugs none Review of Systems All Other Systems Reviewed and Negative Constitutional denies fever Eyes denies drainage ENT see HPI, throat pain. denies: ear discharge, epistaxis, throat swelling. Respiratory denies cough, denies shortness of breath, denies wheezing Cardiovascular denies chest pain, denies palpitations, denies syncope Gastrointestinal denies abdominal pain, denies diarrhea, denies vomiting Genitourinary denies: dysuria, frequency, hesitancy, hematuria. Musculoskeletal denies back pain, denies joint pain, denies joint swelling, denies neck pain Skin denies rash Psychiatric/Neurological denies headache, denies seizure Physical Exam Vital Signs Vital Signs Date Time Temp Pulse Resp B/P Pulse O2 O2 Flow FiO2 Ox Delivery Rate 06/24 0054 97.5 71 20 151/108 95 - WBC >12,000 or <4,000 or 10% bands? 2 or more SIRS Criteria Met? B/P:151/108 MAP:122 Creatinine >2.0? UA output<0.5ml/kg/hr for 2 hrs? Platelet count >100,000? Lactate >2.0mmol/1? INR >1.2 or PTT > than 60 sec? Evidence of Organ Dysfunction? Provider documented clinical suspician of infection? N Sepsis Criteria Count: 1 Sepsis Risk: Low Sepsis Risk General Appearance no apparent distress Eye Exam - bilateral eye PERRL, bilateral eye EOMI Ear, Nose, Throat pharyngeal erythema Neck supple Respiratory Status No: respiratory distress. Lung Sounds bilateral: lungs clear. 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 No Results/Orders Laboratory Tests 06/24/17 0100: Influenza Type A Ag NOT DETECTED, Influenza Type B Ag NOT DETECTED Orders Procedure Date/time Status CULTURE, THROAT 06/24 100 Active STREP SCREEN THROAT 06/24 100 Complete INFLUENZA A&B ANTIGENS 06/24 100 Complete Departure Departure Time of Disposition 0215 Disposition DC Home or Self Care(routine) Clinical Impression Primary Impression: Pharyngitis Qualifiers: Pharyngitis/tonsillitis etiology: unspecified etiology Qualified Code: J02.9 - Acute pharyngitis, unspecified Condition STABLE Referrals FAHAD CHAUDHARY APRN (Family) Patient Instructions DI for Pharyngitis/Tonsillopharyngitis -- Adult Additional Instructions fluids and use meds and see pcp for follow up Discharge Counseling Counseled pt/family regarding diagnosis, test results, medications/RX, follow up needs Prescriptions Current Visit Scripts CEPHALEXIN (Keflex 500MG Capsule) 500 MG PO Q8H #21 CAP ED Critical Care Critical Care No at 2848
[2017-06-24 02:26] VITALS: BP 151/108
[2017-07-03] MEDS ORDERED: ZOFRAN ODT4 MG PO (15:18)
[2017-07-03] MEDS ORDERED: BENTYL10 MG PO (15:28)
== END 2017-06-24 02:27 | disposition home or self-care (01) ==
LOC: ER 00:50
PROVIDERS: Emergency Medicine
DX: J02.9 Acute pharyngitis, unspecified (principal); K21.9 Gastro-esophageal reflux disease without esophagitis; E78.5 Hyperlipidemia, unspecified; I10 Essential (primary) hypertension